=== PATIENT | male | born 1965 | race Caucasian/White ===

== ENCOUNTER → 2017-05-01 | Outpatient (CLI) | payer OTHER ==
[2017-05-01 13:04] LABS: ESTIMATED AVERAGE GLUCOSE 189 mg/dl; HA1C FLAG Normal (Normal)
[2017-05-01 13:36] LABS: BLOOD UREA NITROGEN 20 mg/dl (7-18); BUN/CREATININE RATIO 14.4 (10-20); CARBON DIOXIDE 26 mmol/L (21-32); CHLORIDE 108 mmol/L (98-107); GLUCOSE 147 mg/dl (70-99); POTASSIUM 4.3 mmol/L (3.5-5.1); SODIUM 140 mmol/L (136-145)
[2017-05-01 13:39] LABS: CHOLESTEROL 120 mg/dl (0-200); CHOLESTEROL/HDL RATIO 3.2; HDL CHOLESTEROL 37 mg/dl; LDL CHOLESTEROL CALCULATED 57 mg/dl; TRIGLYCERIDES 128 mg/dl (0-150); VERY LOW DENSITY LIPOPROT CALC 26 mg/dl
== END | disposition home or self-care (01) ==
LOC: C.LABPVFM 08:16
PROVIDERS: ATTEND Nurse Practitioner
DX: E11.9 Type 2 diabetes mellitus without complications (principal); I10 Essential (primary) hypertension; E78.2 Mixed hyperlipidemia

== ENCOUNTER → 2017-10-10 | Outpatient (CLI) | payer OTHER ==
[2017-10-10 18:14] LABS: BLOOD UREA NITROGEN 26 mg/dl (7-18); BUN/CREATININE RATIO 18.4 (10-20); CALCIUM 9.3 mg/dl (8.5-10.1); CARBON DIOXIDE 25 mmol/L (21-32); CHLORIDE 104 mmol/L (98-107); GLUCOSE 92 mg/dl (70-99); POTASSIUM 4.1 mmol/L (3.5-5.1); SODIUM 137 mmol/L (136-145); URIC ACID 7.6 mg/dl (2.6-7.2)
[2017-10-11 06:48] LABS: ESTIMATED AVERAGE GLUCOSE 157 mg/dl; HA1C FLAG Normal (Normal)
== END | disposition home or self-care (01) ==
LOC: C.LABPVFM 13:42
PROVIDERS: ATTEND Nurse Practitioner
DX: E11.9 Type 2 diabetes mellitus without complications (principal); E78.2 Mixed hyperlipidemia; M10.9 Gout, unspecified; Z11.59 Encounter for screening for other viral diseases

== ENCOUNTER 2021-12-21 10:16 | Inpatient (IN) ==
--- NOTE | 2021-12-21 11:02 | Emergency Department Note ---
Impression & Plan JYOTI (acute kidney injury), Right ureteral calculus, Bilateral renal stones ED Provider Note NAME: IVORY CADENA AGE: 56 SEX: M : 1965 ARRIVES VIA: Walk-In INFORMANT: Patient, ED PROVIDER(S): Krystian Willingham MD Chief Complaint: Flank pain, outpatient referral HPI: Patient does present due to concern for bilateral kidney stones right-sided hydroseen on ultrasound today and an outpatient referral. The patient had blood work completed as well. The patient's blood work shows JYOTI with a creatinine 2.7. Patient states that he developed some right-sided flank pain that would radiate to his right groin area beginning on Friday. Patient states that it is been intermittent in nature but when it occurs it is pretty uncomfortable. Patient has been trialing Tylenol, ibuprofen as well as oxycodone. This does occasionally improve his symptoms but today when he presented for his outpatient blood work and ultrasound he was not feeling unwell but as he was going home around 830 the patient noticed worsening discomfort did take an oxycodone and it did not seem to improve his pain within the next 20 to 30 minutes. Patient denies any nausea vomiting. Patient denies any chest pains or shortness of br eath. Patient denies any alcohol or tobacco use and is not vaccinated for COVID. Patient thinks that he might have passed a kidney stone in the remote past but is unsure. Patient denies any blood in the urine or stool. Patient states that has not had a bowel movement in 4 days but is passing gas. No prior history of obstruction but the patient has had an appendectomy. ROS: See HPI for pertinent positives and negatives. A total of 10 systems were reviewed and otherwise negative. Past medical history: See below Surgical history: See below Social history: See below Physical Exam: GENERAL: NAD, wearing a mask, non-toxic. EYE EXAM: Normal conjunctiva. PERRL, no anisocoria and EOM's grossly intact w/o pain. NECK: Supple, no nuchal rigidity, no adenopathy, non-tender. No signs of menin gismus. LUNGS: Clear to auscultation. Normal chest wall mechanics. HEART: NSR, no MRG. ABDOMEN: Abdomen soft, right-sided abdominal discomfort, negative obturators and psoas, normo-active bowel sounds, no masses, no rebound or guarding. BACK: No CVA TTP. SKIN: No rashes and no bruising. UPPER EXTREMITIES: Upper extremities are grossly normal. LOWER EXTREMITIES: Grossly normal, no edema. NEURO EXAM: A&O x3, cranial nerves II-XII grossly intact, normal speech, moves all 4 extremities on command w/o issue. Differential diagnoses: Appendicitis, testicular torsion, infections, diverticulitis, UTI, obstruction, mesenteric ischemia, aortic pathology, inflammatory bowel disease, renal colic, PUD, pancreatitis, biliary pathology, hernia, volvulus, constipation, as well as other pathologies. Course: Patient was seen and evaluated the bedside. Full history physical exam was performed. Imaging Studies: See Below Cardiac monitoring: An order was placed for continuous cardiac monitoring. The monitor shows a rate of 92 with sinus rhythm. MDM: Patient was seen due to concern for abnormal blood work as the patient has a baseline creatinine of 1.3 and today is 2.7. The patient was ordered IV fluids CBC LFTs and CT abdomen pelvis noncontrast as the patient has no prior known history of kidney stones. Patient has a normal white count with mild anemia 12.9. The patient's platelet count is unremarkable. The patient's LFTs are unremarkable. Patient was covered with a dose of Rocephin. Urine culture pending. I did speak with the on-call urologist Fartun Christina who did speak with Dr. Lopez and recommends medical admission. I spoke with Dr. Young and the patient was admitted to the medicine service. The patient was ordered additional pain medication for his renal colic. Past Med/Surg History Medical History Benign essential hypertension Diabetes mellitus Gout Mixed hyperlipidemia Surgical History History of appendectomy Family History Father Cardiac disorder Hypertension Myocardial infarction High cholesterol Grandfather (Maternal) Cardiac disorder Diabetes Hypertension Myocardial infarction Grandfather (Paternal) Cardiac disorder Diabetes Hypertension Myocardial infarction Aunt Depression Cancer Breast cancer Mother Diabetes Grandmother (Maternal) Diabetes Denies family history of Ovarian cancer Prostate cancer Colorectal cancer Social History Smoking Status: Never smoker Hx Alcohol Use: No Hx Substance Use: No Preferred Language: Urdu marital status: Current Living Situation: Spouse current occupational status: employed Feels Safe at Home: Yes Dental Care, Regularly: No Seatbelt Use: always Sunscreen Use: Yes Allergies Allergies Allergy/AdvReac Type Severity Reaction Status Date / Time No Known Allergies Allergy Verified 12/21/21 11:33 Home Meds Home Medications Medication Instructions Recorded Confirmed calcipotriene 0.005 % topical cream 1 appln TOPICAL .APPLY A THIN 05/02/19 12/21/21 LAYER T #1 gm allopurinol 100 mg tablet 100 mg PO HS 12/21/21 12/21/21 atorvastatin 40 mg tablet 40 mg PO HS 12/21/21 12/21/21 lisinopril 5 mg tablet 5 mg PO HS 12/21/21 12/21/21 sitagliptin 100 mg-metformin ER 1 tab PO QDD 12/21/21 12/21/21 1,000 mg tablet,extended [id number] (Janumet XR) tamsulosin 0.4 mg capsule (Flomax) 0.4 mg PO QAM 12/21/21 12/21/21 Previous Rx's Medication Instructions Recorded blood sugar diagnostic (OneTouch #100 ea 05/02/19 Ultra Blue Test Strip) Results & Data (ED) Vital Signs Vital Signs - 24 hr 12/21/21 10:17 12/21/21 10:37 12/21/21 11:41 Temperature 36.9 C Temperature Source Temporal Artery Scan Pulse Rate 98 H 66 Pulse Rate [Left Radial] 80 Pulse Rhythm Regular Pulse Rhythm [Left Radial] Regular Pulse Strength [Left Radial] Normal Respiratory Rate 20 18 14 Respiratory Effort / Characteristics Non-Labored Non-Labored Respiratory Depth Normal Normal Respiratory Pattern Regular Regular Blood Pressure 138/88 Blood Pressure [Left Arm] 140/87 Blood Pressure Mean 104 Blood Pressure Mean [Left Arm] 104 Blood Pressure Position [Left Arm] Lying Pulse Oximetry 98 94 98 Oxygen Delivery Method Room Air Room Air Room Air Sepsis Recent Fever Within 48 Hours No Sepsis New/Unexplained Change in Mental Status No Sepsis Action Taken by Nursing No Action Required 12/21/21 12:17 Temperature Temperature Source Pulse Rate Pulse Rate [Left Radial] 81 Pulse Rhythm Pulse Rhythm [Left Radial] Regular Pulse Strength [Left Radial] Normal Respiratory Rate 20 Respiratory Effort / Characteristics Non-Labored Respiratory Depth Normal Respiratory Pattern Regular Blood Pressure Blood Pressure [Left Arm] Blood Pressure Mean Blood Pressure Mean [Left Arm] Blood Pressure Position [Left Arm] Pulse Oximetry 98 Oxygen Delivery Method Room Air Sepsis Recent Fever Within 48 Hours Sepsis New/Unexplained Change in Mental Status Sepsis Action Taken by [facility] Medications Current Medication List: was personally reviewed by me Laboratory Data Attestation: I reviewed the patient's lab results. Result diagrams: 12/21/21 11:38 Lab Results 12/21/21 12/21/21 12/21/21 Range/Units 11:07 11:38 11:38 WBC 9.03 (4.8-10.8) K/uL RBC 3.83 L (4.7-6.1) M/uL Hgb 12.9 L (14.0-18.0) g/dL Hct 36.1 L (42-52) % MCV 94.3 (80-100) fL MCH 33.7 (25-34) pg MCHC 35.7 (32-36) g/dL RDW Std Deviation 43.8 (36.4-46.3) fL RDW Coeff of Jesse 12.7 (11.5-14.5) % Plt Count 216 (130-400) K/uL MPV 10.3 (7.4-10.4) fL Immature Gran % (Auto) 0.2 % Neut % (Auto) 83.6 % Lymph % (Auto) 12.8 % [place] % (Auto) 2.2 % Eos % (Auto) 1.1 % Baso % (Auto) 0.1 % Neut # (Auto) 7.54 H (1.4-6.5) K/uL Lymph # (Auto) 1.16 L (1.2-3.4) K/uL [place] # (Auto) 0.20 (0.11-0.59) K/uL Eos # (Auto) 0.10 (0-0.5) K/uL Baso # (Auto) 0.01 (0-0.2) K/uL Immature Gran # (Auto) 0.02 (0.00-0.02) K/uL Total Bilirubin 0.5 (0.2-1.0) mg/dl Direct Bilirubin 0.1 (0-0.2) mg/dl AST 11 L (13-39) U/L ALT 11 (7-52) U/L Alkaline Phosphatase 64 (34-104) U/L Total Creatine Kinase 62 (30-223) U/L Total Protein 7.4 (6.0-8.3) gm/dl Albumin 3.9 (3.4-5.0) gm/dl Urine Color Yellow Urine Appearance Cloudy A (Clear) Urine pH 5.5 (4.5-7.5) Ur Specific [place] 1.016 (1.000-1.030) Urine Protein 1+ H (Negative) Urine Glucose (UA) Negative (Negative) Urine Ketones 2+ H (Negative) Urine Blood 3+ H (Negative) Urine Nitrite Negative (Negative) Urine Bilirubin Negative (Negative) Urine Urobilinogen Negative (Negative) Ur Leukocyte Esterase Trace H (Negative) Urine WBC (Auto) 5-10 H (0-5) /hpf Urine RBC (Auto) 10-30 H (0-4) /hpf U Hyaline Cast (Auto) 5-10 H (0-5) /lpf U Epithel Cells (Auto) >30 H (0-5) /lpf Urine Bacteria (Auto) Negative (Negative) SARS-CoV-2, RNA, NAAT (NEGATIVE) 12/21/21 Range/Units 11:38 WBC (4.8-10.8) K/uL RBC (4.7-6.1) M/uL Hgb (14.0-18.0) g/dL Hct (42-52) % MCV (80-100) fL MCH (25-34) pg MCHC (32-36) g/dL RDW Std Deviation (36.4-46.3) fL RDW Coeff of Jesse (11.5-14.5) % Plt Count (130-400) K/uL MPV (7.4-10.4) fL Immature Gran % (Auto) % Neut % (Auto) % Lymph % (Auto) % [place] % (Auto) % Eos % (Auto) % Baso % (Auto) % Neut # (Auto) (1.4-6.5) K/uL Lymph # (Auto) (1.2-3.4) K/uL [place] # (Auto) (0.11-0.59) K/uL Eos # (Auto) (0-0.5) K/uL Baso # (Auto) (0-0.2) K/uL Immature Gran # (Auto) (0.00-0.02) K/uL Total Bilirubin (0.2-1.0) mg/dl Direct Bilirubin (0-0.2) mg/dl AST (13-39) U/L ALT (7-52) U/L Alkaline Phosphatase (34-104) U/L Total Creatine Kinase (30-223) U/L Total Protein (6.0-8.3) gm/dl Albumin (3.4-5.0) gm/dl Urine Color Urine Appearance (Clear) Urine pH (4.5-7.5) Ur Specific [place] (1.000-1.030) Urine Protein (Negative) Urine Glucose (UA) (Negative) Urine Ketones (Negative) Urine Blood (Negative) Urine Nitrite (Negative) Urine Bilirubin (Negative) Urine Urobilinogen (Negative) Ur Leukocyte Esterase (Negative) Urine WBC (Auto) (0-5) /hpf Urine RBC (Auto) (0-4) /hpf U Hyaline Cast (Auto) (0-5) /lpf U Epithel Cells (Auto) (0-5) /lpf Urine Bacteria (Auto) (Negative) SARS-CoV-2, RNA, NAAT NEGATIVE (NEGATIVE) Administered Medications Discontinued Medications Hydromorphone HCl (Hydromorphone Inj 0.5 Mg/0.5 Ml Syr) 0.5 mg IV NOW STA Stop: 12/21/21 12:56 Last Admin: 12/21/21 13:06 Dose: 0.5 mg Documented by: [id number] Hydromorphone HCl (Hydromorphone Inj 0.5 Mg/0.5 Ml Syr) 0.5 mg IV NOW STA Stop: 12/21/21 15:40 Last Admin: 12/21/21 15:48 Dose: 0.5 mg Documented by: [id number] Sodium Chloride (Nss 1000ml) 1,000 mls @ 999 mls/hr IV .Q1H1M RONALDO Stop: 12/21/21 12:30 Last Infusion: 12/21/21 12:37 Dose: 0 mls/hr Documented by: [id number] Admin: 12/21/21 11:34 Dose: 999 mls/hr Documented by: [id number] Ceftriaxone Sodium (Rocephin) 2,000 mg in 70 mls @ 140 mls/hr IV NOW STA Stop: 12/21/21 13:05 Last Infusion: 12/21/21 13:19 Dose: 0 mls/hr Documented by: [id number] Admin: 12/21/21 12:46 Dose: 140 mls/hr Documented by: [id number] Morphine Sulfate (Morphine Sulfate 4 Mg/Ml 1 Ml Carp\Vial) 4 mg IV NOW STA Stop: 12/21/21 11:25 Last Admin: 12/21/21 11:34 Dose: 4 mg Documented by: [id number] Ondansetron HCl (Ondansetron Inj 2 Mg/Ml 2 Ml Vial) 4 mg IV NOW STA Stop: 12/21/21 11:25 Last Admin: 12/21/21 11:34 Dose: 4 mg Documented by: [id number] Imaging Data Radiologist's Impression: Abdomen/Pelvis CT 12/21/21 11:24 CT SCAN OF THE ABDOMEN AND PELVIS WITHOUT IV CONTRAST CLINICAL HISTORY: Right flank pain and hematuria. COMPARISON STUDY: Renal ultrasound dated 12/21/2021. TECHNIQUE: CT scan of the abdomen and pelvis is performed from the lung bases to the proximal femora. Images are reviewed in the axial, sagittal, and coronal planes. IV contrast was not administered for this examination. A dose lowering technique was utilized adhering to the principles of ALARA. CT DOSE: 434.13 mGycm FINDINGS: Lung bases: The heart is normal in size and without pericardial effusion. There are punctate calcified granulomas at the left lung base. The lung bases are otherwise clear. There is a small hiatal hernia. Liver: The unenhanced liver is normal in size, contour, and attenuation. There is no intrahepatic biliary ductal dilatation. Gallbladder: Unremarkable. Spleen: Normal in size and attenuation. Pancreas: The unenhanced pancreas is mildly atrophic and grossly unremarkable. Adrenal glands: Unremarkable. Kidneys: The unenhanced kidneys are normal in size. There is a 7 mm obstructing calculus in the distal right ureter below the pelvic inlet seen on image #317. There are 2 additional more proximal right ureteral stones at the level of L4 seen on images #219 and #226 which measure up to 8 mm. These cause moderate right-sided hydroureteronephrosis. There is associated right-sided perinephric stranding and trace fluid. Numerous additional nonobstructing bilateral renal calculi measure up to 10 mm right (greater than 10 in each kidney). No left ureteral calculi are identified and there is no left-sided hydronephrosis. There is no evidence of contour deforming renal mass lesion. Abdominal vasculature: The abdominal aorta is normal in course and caliber. Bowel: There are scattered colonic diverticula without CT evidence of acute diverticulitis. No bowel obstruction is seen. Mild fecal retention is seen throughout the colon. The appendix is surgically absent. Peritoneum: No intraperitoneal free air is seen. There is trace free fluid in the pelvis. Lymphadenopathy: None. Pelvic viscera: The prostate gland is mildly enlarged and heterogeneous. The bladder is normal as visualized. Surgical clips are noted along the spermatic cord bilaterally. Skeletal structures: No lytic or blastic lesions are seen. IMPRESSION: 1. There are at least 3 obstructing calculi in the right ureter as detailed above measuring up to 8 mm. This causes moderate right hydroureteronephrosis. 2. There are numerous additional bilateral nonobstructing renal calculi as above. 3. There is no left ureteral stone. 4. Additional findings as above. ACT 112: Negative or not required by law. Electronically signed by: Wilder Chang M.D. 12/21/2021 12:30 PM Discharge Plan Visit Data Chief Complaint: Kidney Stone Stated Complaint: KIDNEY STONES, FLANK PAIN ED Provider: Krystian Willingham Discharge Problem: JYOTI (acute kidney injury), Right ureteral calculus, Bilateral renal stones Patient Disposition: Admitted As Inpatient Discharge Instructions Interventions: ED Discharge Assessment Last Done: 12/21/21 16:20
[2021-12-21] MEDS ORDERED: MoRPHine SULFATE 4 MG/ML 1 ML CARP\\VIAL IV STA (11:24)
[2021-12-21] MEDS ORDERED: ONDANSETRON INJ 2 MG/ML 2 ML VIAL IV STA (11:24)
[2021-12-21] MEDS ORDERED: SODIUM CHLORIDE 0.9% 1000ML 1,000 ML IV SCH (11:30)
[2021-12-21 11:31] LABS: Appearance Urine Cloudy (Clear); Bacteria Urine Automated Negative (Negative); Bilirubin Urine Negative (Negative); Blood Urine 3+ (Negative); Color Urine Yellow; Epithelial Cell Urine Auto >30 /lpf (0-5); Glucose Urine UA Negative (Negative); Ketones Urine 2+ (Negative); Leukocyte Esterase Urine Trace (Negative); Nitrite Urine Negative (Negative); Protein Urine 1+ (Negative); Specific Gravity Urine 1.016 (1.000-1.030); Urobilinogen Urine Negative (Negative); pH Urine 5.5 (4.5-7.5)
[2021-12-21 11:51] LABS: Basophils # (auto) 0.01 K/uL (0-0.2); Basophils % (auto) 0.1 %; Eosinophils % (auto) 1.1 %; Hematocrit (blood only) 36.1 % (42-52); Hemoglobin 12.9 g/dL (14.0-18.0); Immature Granulocytes # (auto) 0.02 K/uL (0.00-0.02); Immature Granulocytes % (auto) 0.2 %; Lymphocytes # (auto) 1.16 K/uL (1.2-3.4); Lymphocytes % (auto) 12.8 %; Mean Corpuscular Hemoglobin 33.7 pg (25-34); Mean Corpuscular Hgb Conc 35.7 g/dL (32-36); Mean Corpuscular Volume 94.3 fL (80-100); Mean Platelet Volume 10.3 fL (7.4-10.4); Monocytes % (auto) 2.2 %; Neutrophils # (auto) 7.54 K/uL (1.4-6.5); Neutrophils % (auto) 83.6 %; Platelet Count 216 K/uL (130-400); RDW Coefficient of Variation 12.7 % (11.5-14.5); RDW Standard Deviation 43.8 fL (36.4-46.3); Red Blood Count 3.83 M/uL (4.7-6.1); White Blood Count 9.03 K/uL (4.8-10.8)
[2021-12-21 12:26] LABS: Albumin Level 3.9 gm/dl (3.4-5.0); Bilirubin Direct 0.1 mg/dl (0-0.2); Bilirubin,Total 0.5 mg/dl (0.2-1.0); Total Protein 7.4 gm/dl (6.0-8.3)
--- NOTE | 2021-12-21 12:31 | CT Scan Report ---
CT SCAN OF THE ABDOMEN AND PELVIS WITHOUT IV CONTRAST CLINICAL HISTORY: Right flank pain and hematuria. COMPARISON STUDY: Renal ultrasound dated 12/21/2021. TECHNIQUE: CT scan of the abdomen and pelvis is performed from the lung bases to the proximal femora. Images are reviewed in the axial, sagittal, and coronal planes. IV contrast was not administered for this examination. A dose lowering technique was utilized adhering to the principles of ALARA. CT DOSE: 434.13 mGycm FINDINGS: Lung bases: The heart is normal in size and without pericardial effusion. There are punctate calcifie d granulomas at the left lung base. The lung bases are otherwise clear. There is a small hiatal herni a. Liver: The unenhanced liver is normal in size, contour, and attenuation. There is no intrahepatic julia iary ductal dilatation. Gallbladder: Unremarkable. Spleen: Normal in size and attenuation. Pancreas: The unenhanced pancreas is mildly atrophic and grossly unremarkable. Adrenal glands: Unremarkable. Kidneys: The unenhanced kidneys are normal in size. There is a 7 mm obstructing calculus in the dista l right ureter below the pelvic inlet seen on image #317. There are 2 additional more proximal right ureteral stones at the level of L4 seen on images #219 and #226 which measure up to 8 mm. These cause moderate right-sided hydroureteronephrosis. There is associated right-sided perinephric stranding an d trace fluid. Numerous additional nonobstructing bilateral renal calculi measure up to 10 mm right ( greater than 10 in each kidney). No left ureteral calculi are identified and there is no left-sided h ydronephrosis. There is no evidence of contour deforming renal mass lesion. Abdominal vasculature: The abdominal aorta is normal in course and caliber. Bowel: There are scattered colonic diverticula without CT evidence of acute diverticulitis. No bowel obstruction is seen. Mild fecal retention is seen throughout the colon. The appendix is surgically a bsent. Peritoneum: No intraperitoneal free air is seen. There is trace free fluid in the pelvis. Lymphadenopathy: None. Pelvic viscera: The prostate gland is mildly enlarged and heterogeneous. The bladder is normal as vis ualized. Surgical clips are noted along the spermatic cord bilaterally. Skeletal structures: No lytic or blastic lesions are seen. IMPRESSION: 1. There are at least 3 obstructing calculi in the right ureter as detailed above measuring up to 8 m m. This causes moderate right hydroureteronephrosis. 2. There are numerous additional bilateral nonobstructing renal calculi as above. 3. There is no left ureteral stone. 4. Additional findings as above. ACT 112: Negative or not required by law. Electronically signed by: Wilder Chang M.D. 12/21/2021 12:30 PM
[2021-12-21] MEDS ORDERED: cefTRIAXone SODIUM 2,000 MG/70 ML BAG IV STA (12:36)
[2021-12-21] MEDS ORDERED: HYDROmorphone INJ 0.5 MG/0.5 ML SYR IV STA ×2 (12:55→15:39)
--- NOTE | 2021-12-21 12:59 | Urology Consultation ---
Date of Consultation December 21, 2021 Assessment & Plan (1) Right ureteral calculus: 56yo M admitted with intractable right flank pain and JYOTI secondary to several obstructing right ureteral calculi. - Plan of care reviewed with Dr. Lopez, on-call urologist. - Pt afebrile, VSS, non-toxic appearing. - Labs reviewed - Creatinine elevated to 2.75, no leukocytosis. - Urinalysis on admit not overly concerning for infection, culture pending - treated with IV Ceftriaxone in ED, follow culture. - CTAP reviewed and notable for 3 obstructing right ureteral calculi with moderate hydro, numerous nonobstructing b/l renal stones. - Discussed options for stone management including surgical intervention with stent placement vs outpatient intervention if stable. - Given JYOTI, recommend admit for hydration and monitoring. - If creatinine improves and pain is controlled, then reasonable to schedule stone surgery as an outpatient. - If creatinine remains elevated or acute changes in clinical status, then emergent right ureteral stent placement recommended. - Patient agreeable with the plan, all questions answered. - Continue supportive care and management per primary service. - NPO at midnight to reassess tomorrow. - Please consult our service urgently if patient develops fever >101F, intractable pain or nausea, as this will necessitate urgent surgical intervention. Thank you for the consultation and we will continue to monitor closely with primary service. ATTENDING NOTE: Agree with above. Independently evaluated, assessed, and examined. Risks and benefits discussed at length for procedure. These include bleeding, infection, injury to surrounding tissues or organs, and risks associated with anesthesia. Patient states understanding and agrees to proceed. Will sign consent and proceed. Plan for Cystoscopy and right stent. History of Present Illness Reason for Consultation: right ureteral stones, JYOTI Requesting Physician: Dr. Willingham History of Present Illness 56 year-old male patient with a past medical history including DM, HTN, HLD who presented to the ED today as outpatient referral with concern for kidney stones and right sided hydronephrosis found on ultrasound imaging. On arrival, he reported right sided flank pain radiating to his right groin beginning on Friday. He completed outpatient labs and imaging and was found to have an obstructing stone with JYOTI (creatinine 2.75) and was referred to the ED for further evaluation. On presentation, he was afebrile, hemodynamically stable. No leukocytosis. Urinalysis notable for 3+ blood,trace leukocytes, 5-10WBC, 10-30RBC, negative bacteria, negative nitrite. He was given IVF and pain medication. Pt given dose of IV Ceftriaxone in ED. Patient was admitted to medicine for further management. A urine culture is pending. Covid test negative. Urology consulted for right ureteral stones, JYOTI. CT abdomen pelvis IMPRESSION: 1. There are at least 3 obstructing calculi in the right ureter as detailed above measuring up to 8 mm. This causes moderate right hydroureteronephrosis. 2. There are numerous additional bilateral nonobstructing renal calculi as above. 3. There is no left ureteral stone. Renal ultrasound IMPRESSION: 1. Mild right-sided hydronephrosis. Correlate with urinalysis to exclude an obstructing ureteral calculus. 2. Bilateral nephrolithiasis. 3. Decompressed urinary bladder. Patient seen and examined in ER. Patient awake, alert and resting in litter, no acute distress. He reports pain has improved since arrival. Pain continues to come intermittently and is located in right flank radiating to right abdomen and groin. Voiding spontaneously, notes stream is weaker intermittently since 4-5 days ago at onset of pain. No dysuria or hematuria. No nausea or vomiting. Notes low appetite since onset, last BM 4 days ago. No fever or chills. No chest pain or shortness of breath. No prior urology evaluations. He thinks he may have passed a stone a few years ago, but denies any prior surgical interventions for stones. No known family history of stones. No family hx of malignancy. He is on Allopurinol for gout. Offers no additional complaints today. Allergies Allergy/AdvReac Type Severity Reaction Status Date / Time No Known Allergies Allergy Verified 12/21/21 11:33 Home Medications Medication Instructions Recorded Confirmed Type blood sugar diagnostic (OneTouch #100 ea 05/02/19 12/20/21 Rx Ultra Blue Test Strip) calcipotriene 0.005 % topical cream 1 appln TOPICAL .APPLY A THIN 05/02/19 12/21/21 History LAYER T #1 gm allopurinol 100 mg tablet 100 mg PO HS 12/21/21 12/21/21 History atorvastatin 40 mg tablet 40 mg PO HS 12/21/21 12/21/21 History lisinopril 5 mg tablet 5 mg PO HS 12/21/21 12/21/21 History sitagliptin 100 mg-metformin ER 1 tab PO QDD 12/21/21 12/21/21 History 1,000 mg tablet,extended [id number] mp (Janumet XR) tamsulosin 0.4 mg capsule (Flomax) 0.4 mg PO QAM 12/21/21 12/21/21 History Patient History Medical History Benign essential hypertension Diabetes mellitus Gout Mixed hyperlipidemia Surgical History History of appendectomy Family History Father Cardiac disorder Hypertension Myocardial infarction High cholesterol Grandfather (Maternal) Cardiac disorder Diabetes Hypertension Myocardial infarction Grandfather (Paternal) Cardiac disorder Diabetes Hypertension Myocardial infarction Aunt Depression Cancer Breast cancer Mother Diabetes Grandmother (Maternal) Diabetes Denies family history of Ovarian cancer Prostate cancer Colorectal cancer Social History Smoking Status: Never smoker Hx Alcohol Use: No Hx Substance Use: No Preferred Language: Vietnamese Fireperson Required: No Beliefs That Will Affect Care: None marital status: Current Living Situation: Family current occupational status: employed Feels Safe at Home: Yes Dental Care, Regularly: No Seatbelt Use: always Sunscreen Use: Yes Review of Systems Constitutional: as per Subjective / HPI Eyes: no problem reported Ear, Nose, Mouth, Throat: no problem reported Respiratory: no dyspnea Cardiovascular: no chest pain Gastrointestinal: as per Subjective / HPI Genitourinary: + as per Subjective / HPI Musculoskeletal: no problem reported Integumentary: no problem reported Neurologic: no problem reported Psychiatric: no problem reported Endocrine: no problem reported Physical Exam Constitutional: well developed and well nourished; no acute distress and not ill appearing Eyes: no scleral abnormality Neck: normal visual inspection Respiratory: normal respiratory effort and able to speak in complete sentences; no respiratory distress and no labored breathing Cardiovascular: Extremities: no pedal edema Gastrointestinal (Abdomen): Inspection/Auscultation: abdomen normal to inspection; abdomen not distended Percussion/Palpation: abdomen soft; abdomen nontender and no guarding Neurologic: moves all extremities and awake Psychiatric: Orientation: alert, oriented x 3 and cooperative Genitourinary: no CVA tenderness Results & Data ([facility]) Vital Signs (Past 12 Hours) Vital Signs Temp Pulse Resp BP Pulse Ox 12/21/21 11:41 66 14 98 12/21/21 10:37 36.9 C 98 H 18 138/88 94 PG Care Time/CCT Total # of Minutes Spent Total Time Spent with Patient: Total time spent is greater than 50% in coordination of care (as documented) at patient's floor/unit and/or counseling patient: Coding Level of Care Code 48365 Inpt Consult Level 4 Diagnoses Right ureteral calculus N20.1
--- NOTE | 2021-12-21 13:49 | History & Physical Report ---
Date of Service December 21, 2021 Assessment & Plan (1) Bilateral renal stones: Plan: Multiple bilateral renal stones- right obstructing associated with right sided hydronephrosis. 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 Patient comes to the hospital today after visit with PCP on [id number] for complaints of back pain, decreased urine stream, and pelvic pain. The patient was started on Flomax as outpatient and had BMP, UA, and renal ultrasound performed as outpatient. 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 He had a CT scan performed following his renal ultrasound. Urology was consulted by the [facility] and Hospitalist service was consulted for admission. The patient has multiple bilateral renal stones with right side obstruction and moderate right sided hydronephrosis. His UA is likely consistent with contaminant- will hold on further Rocephin. Patient denies any fevers or chills, but has noted increase in right sided flank and back pain with radiation to the testicles. The pain comes in waves and is rated 7-8/10 when it is on-going. He has been trying to medicate at home with Advil, Tylenol, and Oxycodone with severe pain, he does endorse decrease in appetite and fluid intake. Also endorses some hematuria and decrease in his urine stream. He has not followed up with urology in the past and is unsure of family history of prostate cancer or history of enlargement. Patient will be admitted to the medical floor, diet as tolerated, LR for hydration, dilaudid and tylenol for pain control, transition to sliding scale insulin for BG >180. NPO after midnight. Patient has not had his COVID vaccines and his COVID test on admission is: NEGATIVE Allergies Allergy/AdvReac Type Severity Reaction Status Date / Time No Known Allergies Allergy Verified 12/21/21 11:33 Home Medications Medication Instructions Recorded Confirmed Type blood sugar diagnostic (OneTouch #100 ea 05/02/19 12/20/21 Rx Ultra Blue Test Strip) calcipotriene 0.005 % topical cream 1 appln TOPICAL .APPLY A THIN 05/02/19 12/21/21 History LAYER T #1 gm allopurinol 100 mg tablet 100 mg PO HS 12/21/21 12/21/21 History atorvastatin 40 mg tablet 40 mg PO HS 12/21/21 12/21/21 History lisinopril 5 mg tablet 5 mg PO HS 12/21/21 12/21/21 History sitagliptin 100 mg-metformin ER 1 tab PO QDD 12/21/21 12/21/21 History 1,000 mg tablet,extended [id number] mp (Janumet XR) tamsulosin 0.4 mg capsule (Flomax) 0.4 mg PO QAM 12/21/21 12/21/21 History Past Med/Surg History Medical History (Updated 12/21/21 @ 14:05 by Rebecca Young MD) Benign essential hypertension Diabetes mellitus Gout Mixed hyperlipidemia Surgical History History of appendectomy Family History Father Cardiac disorder Hypertension Myocardial infarction High cholesterol Grandfather (Maternal) Cardiac disorder Diabetes Hypertension Myocardial infarction Grandfather (Paternal) Cardiac disorder Diabetes Hypertension Myocardial infarction Aunt Depression Cancer Breast cancer Mother Diabetes Grandmother (Maternal) Diabetes Denies family history of Ovarian cancer Prostate cancer Colorectal cancer Social History Smoking Status: Never smoker Hx Alcohol Use: No Hx Substance Use: No Preferred Language: [place] marital status: Current Living Situation: Spouse current occupational status: employed Feels Safe at Home: Yes Dental Care, Regularly: No Seatbelt Use: always Sunscreen Use: Yes Review of Systems Review of Systems: REVIEW OF SYSTEMS: Constitutional: No fever, sweats or chills Eyes: No diplopia, no worsening or blurred vision ENT: normal hearing, no trouble swallowing Respiratory: No cough, sputum, dyspnea at rest or on exertion Cardiovascular: No chest pain, tightness or palpitations Abdomen: (+) pain, nausea, vomiting, constipation Musculoskeletal: (+) flank pain, calf pain, swelling Neurologic: No weakness, numbness/tingling, or balance problems Psychiatric: No anxiety or depression Skin: No rash or itch Physical Exam Physical Exam: PHYSICAL EXAM: General: awake, alert, no apparent distress Head: Normocephalic, atraumatic ENT: PERRL, EOMI, no pharyngeal exudate, mucous membranes moist Neuro: AAO x 3, speech clear and appropriate, strength intact bilaterally 5/5, sensation intact and equal all extremities and dermatomes, no pronator drift Chest: equal rise and fall of the chest, no accessory muscle use, no heaves or thrills, Clear to auscultation, on room air, Cardiac: Regular rate and rhythm, telemetry reviewed, skin warm dry, cap refill <3 seconds, peripheral pulses +2 no JVD, no murmur, no edema GI: NABS x 4 quadrants, softly distended, tympanic on percussion, nontender to palpation, no rebound, guarding or tenderness : Spontaneously voiding, no pain, no CVA tenderness, Extremities: Normal inspection, no peripheral edema or erythema, calfs nontender to palpation Psych: Normal mood and affect Skin: no rash or erythema Results & Data Results & Data ([facility]) Vital Signs (Past 12 Hours) Vital Signs Temp Pulse Pulse Resp BP BP Pulse Ox 12/21/21 12:17 81 20 98 12/21/21 11:41 66 14 98 12/21/21 10:37 36.9 C 98 H 18 138/88 94 12/21/21 10:17 80 20 140/87 98 Laboratory Results Abnormal Labs 12/21/21 12/21/21 12/21/21 11:07 11:38 11:38 RBC 3.83 L Hgb 12.9 L Hct 36.1 L Neut # (Auto) 7.54 H Lymph # (Auto) 1.16 L AST 11 L Urine Appearance Cloudy A Urine Protein 1+ H Urine Ketones 2+ H Urine Blood 3+ H Ur Leukocyte Esterase Trace H Urine WBC (Auto) 5-10 H Urine RBC (Auto) 10-30 H U Hyaline Cast (Auto) 5-10 H U Epithel Cells (Auto) >30 H Diagnostic Findings Abdomen/Pelvis CT 12/21/21 11:24 CT SCAN OF THE ABDOMEN AND PELVIS WITHOUT IV CONTRAST CLINICAL HISTORY: Right flank pain and hematuria. COMPARISON STUDY: Renal ultrasound dated 12/21/2021. TECHNIQUE: CT scan of the abdomen and pelvis is performed from the lung bases to the proximal femora. Images are reviewed in the axial, sagittal, and coronal planes. IV contrast was not administered for this examination. A dose lowering technique was utilized adhering to the principles of ALARA. CT DOSE: 434.13 mGycm FINDINGS: Lung bases: The heart is normal in size and without pericardial effusion. There are punctate calcified granulomas at the left lung base. The lung bases are otherwise clear. There is a small hiatal hernia. Liver: The unenhanced liver is normal in size, contour, and attenuation. There is no intrahepatic biliary ductal dilatation. Gallbladder: Unremarkable. Spleen: Normal in size and attenuation. Pancreas: The unenhanced pancreas is mildly atrophic and grossly unremarkable. Adrenal glands: Unremarkable. Kidneys: The unenhanced kidneys are normal in size. There is a 7 mm obstructing calculus in the distal right ureter below the pelvic inlet seen on image #317. There are 2 additional more proximal right ureteral stones at the level of L4 seen on images #219 and #226 which measure up to 8 mm. These cause moderate right-sided hydroureteronephrosis. There is associated right-sided perinephric stranding and trace fluid. Numerous additional nonobstructing bilateral renal calculi measure up to 10 mm right (greater than 10 in each kidney). No left ur eteral calculi are identified and there is no left-sided hydronephrosis. There is no evidence of contour deforming renal mass lesion. Abdominal vasculature: The abdominal aorta is normal in course and caliber. Bowel: There are scattered colonic diverticula without CT evidence of acute diverticulitis. No bowel obstruction is seen. Mild fecal retention is seen throughout the colon. The appendix is surgically absent. Peritoneum: No intraperitoneal free air is seen. There is trace free fluid in the pelvis. Lymphadenopathy: None. Pelvic viscera: The prostate gland is mildly enlarged and heterogeneous. The bladder is normal as visualized. Surgical clips are noted along the spermatic cord bilaterally. Skeletal structures: No lytic or blastic lesions are seen. IMPRESSION: 1. There are at least 3 obstructing calculi in the right ureter as detailed above measuring up to 8 mm. This causes moderate right hydroureteronephrosis. 2. There are numerous additional bilateral nonobstructing renal calculi as above. 3. There is no left ureteral stone. 4. Additional findings as above. ACT 112: Negative or not required by law. Electronically signed by: Wilder Chang M.D. 12/21/2021 12:30 PM Medications Administered Discontinued Medications Hydromorphone HCl (Hydromorphone Inj 0.5 Mg/0.5 Ml Syr) 0.5 mg IV NOW STA Stop: 12/21/21 12:56 Last Admin: 12/21/21 13:06 Dose: 0.5 mg Documented by: [id number] Sodium Chloride (Nss 1000ml) 1,000 mls @ 999 mls/hr IV .Q1H1M RONALDO Stop: 12/21/21 12:30 Last Infusion: 12/21/21 12:37 Dose: 0 mls/hr Documented by: [id number] Admin: 12/21/21 11:34 Dose: 999 mls/hr Documented by: [id number] Ceftriaxone Sodium (Rocephin) 2,000 mg in 70 mls @ 140 mls/hr IV NOW STA Stop: 12/21/21 13:05 Last Infusion: 12/21/21 13:19 Dose: 0 mls/hr Documented by: [id number] Admin: 12/21/21 12:46 Dose: 140 mls/hr Documented by: [id number] Morphine Sulfate (Morphine Sulfate 4 Mg/Ml 1 Ml Carp\Vial) 4 mg IV NOW STA Stop: 12/21/21 11:25 Last Admin: 12/21/21 11:34 Dose: 4 mg Documented by: [id number] Ondansetron HCl (Ondansetron Inj 2 Mg/Ml 2 Ml Vial) 4 mg IV NOW STA Stop: 12/21/21 11:25 Last Admin: 12/21/21 11:34 Dose: 4 mg Documented by: [id number] ECG Additional Comments: pending on admission Code Status & VTE Plan Code Status CODE: FULL VTE: SCDS, ambulation VTE Prophylaxis Plan VTE Prophylaxis will be ordered: Yes Supervising Physician Co-Signing Physician Notes FUEL AGENT Supervision note: I have personally seen and examined the patient and discussed and verified the gomez points of the history and physical along with the plan with TRACI Ballard with the following exceptions and/or additions: This patient is a 56-year-old male with history of HTN, DM 2, gout, who presents with right flank pain, low appetite. Denies fevers or chills, nausea/vomiting. He has not moved his bowels in 5 days. Found to have right ureterolithiasis with right moderate hydronephrosis and acute kidney injury in the ER. UA negative for infection but more consistent with microscopic hematuria and contamination with epithelial cells. History and ROS reviewed as above Vitals reviewed Gen: AAOx3, NAD HEENT: Anicteric sclerae, EOMI CV: RRR no mgr nl S1S2 Pulm: CTAB no wcr Abd: +BS soft NT ND no masses or hernias Ext: No edema, 2+ DP pulses Skin: No rashes, warm/dry Neuro: Full strength throughout Labs and rads reviewed ECG pending 56-year-old male here with acute kidney injury, obstructing right uretero lithiasis with hydronephrosis Admit for IV fluid hydration, urology management with stent placement likely tomorrow -Pain control, bowel regimen Hold lisinopril and Janumet Follow chemistry in the morning PG Care Time/CCT Total # of Minutes Spent Total Time Spent with Patient: Total time spent is greater than 50% in coordination of care (as documented) at patient's floor/unit and/or counseling patient: Coding Level of Care Code 71505 Initial Inpt Care Lvl 3 Diagnoses Difficulty urinating R39.198 Benign essential hypertension I10 Diabetes mellitus E11.9 Mixed hyperlipidemia E78.2 Bilateral renal stones N20.0 JYOTI (acute kidney injury) N17.9
--- NOTE | 2021-12-21 14:39 | Electrocardiogram Report ---
Test Reason : Blood Pressure : / mmHG Vent. Rate : 076 BPM Atrial Rate : 076 BPM P-R Int : 192 ms QRS Dur : 090 ms QT Int : 360 ms P-R-T Axes : 058 050 028 degrees QTc Int : 405 ms Normal sinus rhythm Normal ECG No previous ECGs available Confirmed by George Rebolledo ([id number]) on 12/21/2021 2:39:37 PM Referred By: REFERRED SELF Confirmed By:Roman Rebolledo
[2021-12-21] MEDS ORDERED: POLYETHYLENE (MIRALAX) 17 GM PACK PO PRN (16:41)
[2021-12-21] MEDS ORDERED: DEXTROSE 50% 50 ML SYRINGE IV PRN (16:41)
[2021-12-21] MEDS ORDERED: CARBOHYDRATES FOR HYPOGLYCEMIA PO PRN (16:41)
[2021-12-21] MEDS ORDERED: GLUCAGON FOR INJ 1 MG VIAL SQ PRN (16:41)
[2021-12-21] MEDS ORDERED: DOCUSATE SODIUM/SENNA 50/8.6MG TAB PO PRN (16:41)
[2021-12-21] MEDS ORDERED: GLUCOSE 40% GEL 15 GM TUBE PO PRN (16:41)
[2021-12-21] MEDS ORDERED: ACETAMINOPHEN 325 MG TAB PO PRN (16:41)
[2021-12-21] MEDS: LACTATED RINGER'S 1,000 ML IV SCH (16:41)
[2021-12-21] MEDS ORDERED: GLUCOSE 10 TABS/TUBE PO PRN (16:41)
[2021-12-21] MEDS: HYDROmorphone INJ 0.5 MG/0.5 ML SYR IV PRN ×2 (17:48→21:35)
[2021-12-21] MEDS: INSULIN ASPART PER UNIT SC SCH ×2 (17:49→21:33)
[2021-12-21] MEDS: ONDANSETRON INJ 2 MG/ML 2 ML VIAL IV PRN (19:36)
[2021-12-21] MEDS: allopurinoL 100 MG TAB PO SCH (21:34)
[2021-12-21] MEDS: ATORVASTATIN 40 MG TAB PO SCH (21:34)
[2021-12-22] MEDS: LACTATED RINGER'S 1,000 ML IV SCH ×3 (00:40→18:24)
[2021-12-22] MEDS: HYDROmorphone INJ 0.5 MG/0.5 ML SYR IV PRN ×3 (00:40→08:08)
[2021-12-22] MEDS ORDERED: Nursing to Pharmacy Communication SCH ×2 (03:15→15:15)
[2021-12-22] MEDS: INSULIN ASPART PER UNIT SC SCH ×4 (06:21→21:59)
[2021-12-22] MEDS: ONDANSETRON INJ 2 MG/ML 2 ML VIAL IV PRN (06:26)
[2021-12-22] MEDS: TAMSULOSIN HCL 0.4 MG CAP PO SCH (08:10)
[2021-12-22] MEDS ORDERED: KETOROLAC TROMETHAMINE 15 MG/ML VIAL IV ONE (10:44)
[2021-12-22] MEDS ORDERED: HYDROmorphone INJ 0.5 MG/0.5 ML SYR IV PRN (10:45)
--- NOTE | 2021-12-22 11:04 | Hospitalist Progress Note ---
Date of Service December 22, 2021 Assessment & Plan (1) Right ureteral calculus: Plan: 56yo Male with PMH gout, HTN, HLD, DM2 here for b/l ureterolithiasis with right obstruction (1) Bilateral renal stones: Plan: Multiple bilateral renal stones- right obstructing associated with right sided hydronephrosis. -CT abd: There is a 7 mm obstructing calculus in the distal right ureter below the pelvic inlet seen on image #317. There are 2 additional more proximal right ureteral stones at the level of L4 seen on images #219 and #226 which measure up to 8 mm. These cause moderate right-sided hydroureteronephrosis. There is asso ciated right-sided perinephric stranding and trace fluid. Numerous additional nonobstructing bilateral renal calculi measure up to 10 mm right (greater than 10 in each kidney). No left ureteral calculi are identified and there is no left-sided hydronephrosis. There is no evidence of contour deforming renal mass lesion. - LR 125 ml/hr - npo --> diet resumed post stent placement - Pain control with Tylenol and Dilaudid, increased dilaudid to 1mg q4 and added toradol -added flomax - Urology consulted, stent placed 12/22 with great improvement to pain per patient recommend patient d/c if creatinine downtrending 3-5 days ciprofloxacin pyridium and flomax for stent discomfort drink lots of fluids - Strain urine (2) Difficulty urinating: Plan: As above - likely obstructive from renal stones and enlarged prostate -post stent placement, patient has not urinated yet, will continue to monitor (3) JYOTI (acute kidney injury): Plan: DEDRICK III- multifactorial to renal stone, Advil useage, hypovolemia - Hold ROQUE - Follow HCo3- should improve with hydration and stone removal - Daily BMP, Creat downtrended 2.34 to 2.12 post stent placement - GAP acidosis likely related to increase in BUN/[facility] [employer] (4) Benign essential hypertension: Plan: Hold ROQUE at this time - follow- Notify if >180 and can add on PRN (5) Diabetes mellitus: Plan: Hold his Janumet - HGB A1c 7.6 - Convert to aspart sliding scale (6) Mixed hyperlipidemia: Plan: Continue statin (2) Diabetes mellitus: (3) Mixed hyperlipidemia: (4) JYOTI (acute kidney injury): (5) Bilateral renal stones: (6) Gout: Admission and Anticipated Discharge Date Admission Date: December 21, 2021 Supervising Physician Co-Signing Physician Notes Patient seen and examined with PGY-1 Dr. Fine. Agree with history, exam findings. assessment and plan of care as outlined. In brief, Mr. Busch is a 56 year old male with history of HTN, HLD, DM and gout admitted with obstructing renal stones. Seen prior to surgical intervention. He is in quite a bit of pain due to stones. No nausea, vomiting. VS and nursing notes reviewed. Very uncomfortable. Unable to move due to pain. Labs and imaging reviewed. 1. bilateral renal stones; right obstructing stone with hydronephrosis. flomax, s/p stent today with urology. Appreciate urology recommendations. 2. JYOTI--post-renal. Holding ROQUE for now. 3. HTN. Holding ROQUE inhibitor. But will restart tomorrow if renal function continues to improve. 4. DM. basal-bolus insulin. 5. gout. continue allopurinol. Dispo: expect that he can be discharged home tomorrow if Cr continues to improve and post-intervention pain is well controlled. Subjective 56yo Male seen at bedside, laying down in pain, states his current regime was not adequately managing his pain. States he started having pain starting friday that gradually got worse, came to hospital night. He states he has not had an appetite all week, has not eaten all week. He has been able to urinate. Patient states he has had one kidney stone many years ago, states it did not feel like this. Patient looks forward to urology procedure, hopes it will reduce his pain. Later in day patient taken for urologic stent procedure, stent placed without complication. Per nursing patient appetite has returned, requests diet. Patient states he is no longer in pain. has convinced him to stay overnight in the hospital to monitor pain and kidney function. Review of Systems Review of Systems: Positive abd pain, nausea Negative fever chills Negative headache dizziness Negative chest pain palpitations SOB Negative vomitting diarrhea constipation Negative numbness tingling rash swelling Physical Exam Constitutional: WD/WN, vitals as above + acute distress and cooperative Eyes: PERRL, conjunctivae normal, anicteric sclerae ENMT: external ear and nose normal, oropharynx normal Neck: trachea midline, no thyromegaly Respiratory: normal respiratory effort, lungs clear to auscultation Cardiovascular: RRR, no murmur, no edema Chest (Breasts): Chest: normal inspection of chest Gastrointestinal (Abdomen): Inspection/Auscultation: abdomen normal to inspection and normal bowel sounds Percussion/Palpation: + abdomen tender Skin: no rashes, warm and dry Results & Data Results & Data ([facility]) Vital Signs (Past 12 Hours) Vital Signs Temp Pulse Resp BP Pulse Ox 12/22/21 08:00 36.9 C 77 18 132/83 93 Resident Activity Tracking Resident Involvement: Resident Care Provided Care Provided: Adult Hospital Medicine
[2021-12-22 11:18] LABS: Basophils # (auto) 0.01 K/uL (0-0.2); Basophils % (auto) 0.1 %; Eosinophils # (auto) 0.09 K/uL (0-0.5); Eosinophils % (auto) 1.2 %; Hematocrit (blood only) 33.7 % (42-52); Hemoglobin 11.8 g/dL (14.0-18.0); Immature Granulocytes # (auto) 0.01 K/uL (0.00-0.02); Immature Granulocytes % (auto) 0.1 %; Lymphocytes # (auto) 0.34 K/uL (1.2-3.4); Lymphocytes % (auto) 4.6 %; Mean Corpuscular Volume 94.1 fL (80-100); Mean Platelet Volume 10.9 fL (7.4-10.4); Monocytes # (auto) 0.83 K/uL (0.11-0.59); Monocytes % (auto) 11.3 %; Neutrophils # (auto) 6.04 K/uL (1.4-6.5); Neutrophils % (auto) 82.7 %; Platelet Count 211 K/uL (130-400); RDW Coefficient of Variation 12.5 % (11.5-14.5); RDW Standard Deviation 42.8 fL (36.4-46.3); Red Blood Count 3.58 M/uL (4.7-6.1); White Blood Count 7.32 K/uL (4.8-10.8)
[2021-12-22 11:29] LABS: BUN Creatinine Ratio 12.8 (10-20); Calcium 8.8 mg/dl (8.5-10.1); Creatinine Clr Calc Pharmacy 30.7 ml/min; Est GFR (African American) 34.7 ml/min; Potassium 4.2 mmol/L (3.5-5.1)
--- NOTE | 2021-12-22 12:17 | Anesthesiology Consultation ---
Date of Service December 22, 2021 Assessment & Plan (1) Encounter for pre-operative examination: Chart Review Chart Review: Acceptable Risk for Surgery and Patient NOT seen in Pre Admission Testing Consults Requested none History Surgery Operation Date: 12/22/21 10:30 Proposed Procedures p Cystoscopy, Ureteral Stent Insertion/Removal - Gregory Lopez, Height/Weight Height: 5 ft 5 in Weight: 72.1 kg Allergies Allergy/AdvReac Type Severity Reaction Status Date / Time No Known Allergies Allergy Verified 12/21/21 11:33 Medications Home Medications Medication Instructions Recorded Confirmed Last Taken blood sugar diagnostic (OneTouch #100 ea 05/02/19 12/20/21 Unknown Ultra Blue Test Strip) calcipotriene 0.005 % topical cream 1 appln TOPICAL .APPLY A THIN 05/02/19 12/21/21 Unknown LAYER T #1 gm allopurinol 100 mg tablet 100 mg PO HS 12/21/21 12/21/21 12/19/21 atorvastatin 40 mg tablet 40 mg PO HS 12/21/21 12/21/21 12/19/21 lisinopril 5 mg tablet 5 mg PO HS 12/21/21 12/21/21 12/19/21 sitagliptin 100 mg-metformin ER 1 tab PO QDD 12/21/21 12/21/21 12/19/21 1,000 mg tablet,extended [id number] (Janumet XR) tamsulosin 0.4 mg capsule (Flomax) 0.4 mg PO QAM 12/21/21 12/21/21 12/21/21 Active Medications Generic Name Dose Route Start Last Admin Trade Name Freq PRN Reason Stop Dose Admin Acetaminophen 650 mg 12/21/21 16:41 12/21/21 19:35 Acetaminophen 325 Mg Tab PO 01/20/22 16:40 650 mg Q4H PRN Administration pain/fever Allopurinol 100 mg 12/21/21 21:00 12/21/21 21:34 Allopurinol 100 Mg Tab PO 01/20/22 20:59 100 mg HS RONALDO Administration Atorvastatin Calcium 40 mg 12/21/21 21:00 12/21/21 21:34 Atorvastatin 40 Mg Tab PO 01/20/22 20:59 40 mg HS RONALDO Administration Hydromorphone HCl 1 mg 12/22/21 10:45 12/22/21 12:01 Hydromorphone Inj 0.5 Mg/0.5 Ml Syr IV 01/04/22 16:40 1 mg Q4 PRN Administration Pain Lactated Ringer's 1,000 mls @ 125 mls/hr 12/21/21 16:41 12/22/21 12:05 Lr IV 01/20/22 16:40 0 mls/hr .Q8H RONALDO Infusion Insulin Aspart 0 units 12/22/21 06:00 12/22/21 12:08 Insulin Aspart Per Unit SC 01/21/22 05:59 Not Given Q6 RONALDO Miscellaneous 1 ea 12/22/21 00:00 12/22/21 07:23 Calcipotriene 0.005 % Cream: Order Awaiting Action N/A 01/21/22 00:00 Not Given QS RONALDO Ondansetron HCl 4 mg 12/21/21 16:41 12/22/21 06:26 Ondansetron Inj 2 Mg/Ml 2 Ml Vial IV 01/20/22 16:40 4 mg Q6H PRN Administration Nausea Tamsulosin HCl 0.4 mg 12/22/21 09:00 12/22/21 08:10 Tamsulosin Hcl 0.4 Mg Cap PO 01/21/22 08:59 0.4 mg QAM RONALDO Administration Past Medical History Medical History Benign essential hypertension Diabetes mellitus Gout Mixed hyperlipidemia Past Family History Family History Father Cardiac disorder Hypertension Myocardial infarction High cholesterol Grandfather (Maternal) Cardiac disorder Diabetes Hypertension Myocardial infarction Grandfather (Paternal) Cardiac disorder Diabetes Hypertension Myocardial infarction Aunt Depression Cancer Breast cancer Mother Diabetes Grandmother (Maternal) Diabetes Denies family history of Ovarian cancer Prostate cancer Colorectal cancer Past Surgical History Surgical History History of appendectomy Social History Smoking Status: Never smoker Hx Alcohol Use: No Hx Substance Use: No Physical Exam Vital Signs Last Vital Signs Temp 36.9 C 12/22/21 08:00 Pulse 77 12/22/21 08:00 Resp 18 12/22/21 08:00 BP 132/83 12/22/21 08:00 Pulse Ox 93 12/22/21 08:00 Testing Laboratory Results 12/22/21 10:17 12/22/21 10:17 Urine Color Yellow 12/21/21 11:07 Urine Appearance Cloudy (Clear) A 12/21/21 11:07 Urine pH 5.5 (4.5-7.5) 12/21/21 11:07 Ur Specific [place] 1.016 (1.000-1.030) 12/21/21 11:07 Urine Protein 1+ (Negative) H 12/21/21 11:07 Urine Glucose (UA) Negative (Negative) 12/21/21 11:07 Urine Ketones 2+ (Negative) H 12/21/21 11:07 Urine Nitrite Negative (Negative) 12/21/21 11:07 Ur Leukocyte Esterase Trace (Negative) H 12/21/21 11:07 Urine WBC (Auto) 5-10 /hpf (0-5) H 12/21/21 11:07 Urine RBC (Auto) 10-30 /hpf (0-4) H 12/21/21 11:07 U Hyaline Cast (Auto) 5-10 /lpf (0-5) H 12/21/21 11:07 U Epithel Cells (Auto) >30 /lpf (0-5) H 12/21/21 11:07 Urine Bacteria (Auto) Negative (Negative) 12/21/21 11:07 12/22/21 12/22/21 12:02 05:58 POC Glucose 121 H 146 H
--- NOTE | 2021-12-22 12:36 | History & Physical Bridge Note ---
Date of Service December 22, 2021 History & Physical Bridge Note I have examined the patient, reviewed the History & Physical and in the interval since the performance of the History & Physical I have noted the following changes of clinical significance: no changes noted
[2021-12-22] MEDS ORDERED: MIDAZOLAM HCL 1 MG/ML 2ML VIAL ONE (12:42)
[2021-12-22] MEDS ORDERED: fentaNYL citrate 100 MCG/2 ML VIAL ONE (12:42)
[2021-12-22] MEDS ORDERED: PROPOFOL IV EMULSION 10 MG/ML 20 ML VIAL IV ONE (12:42)
[2021-12-22] MEDS ORDERED: LIDOCAINE 2% 2 ML VIAL/AMP(20MG/ML) INFIL ONE (12:42)
[2021-12-22] MEDS ORDERED: FAMOTIDINE 20 MG in SYRINGE 3 ML IV PRN (13:05)
[2021-12-22] MEDS ORDERED: ATROPINE SULFATE 0.1 MG/ML 10ML SYR IV PRN (13:18)
[2021-12-22] MEDS ORDERED: ONDANSETRON INJ 2 MG/ML 2 ML VIAL IV PRN (13:18)
[2021-12-22] MEDS ORDERED: fentaNYL citrate 100 MCG/2 ML VIAL IV PRN (13:18)
[2021-12-22] MEDS ORDERED: ePHEDrine sulfate 50 MG/ML AMP IV PRN (13:18)
[2021-12-22] MEDS ORDERED: ceFAZolin 2000MG 2,000 MG/15 ML SYR IV ONE (13:20)
--- NOTE | 2021-12-22 13:26 | Operative Report ---
[facility] Post Operative Report Pre & Post Diagnosis Operation Date: 12/22/21 10:30 Pre-Op Diagnosis: Right Ureteral Stones Post-Op Diagnosis: Right Ureteral Stones I identified the patient and participated in the time-out.: Yes Procedure Operation Date: 12/22/21 10:30 Actual Procedures p Cystoscopy and Right Retrograde Pyelogram, aspiration of urine, and Insertion of Right Ureteral Stent - Gregory Lopez DO Surgeon Gregory Lopez, II, DO Drier Helper None Estimated Blood Loss 0 Findings Consistent with Post-Op Diagnosis Stent placed in good position. Significant bloody/old clot discharge after manipulating past distal stone. Clear urine in renal pelvis. Specimens Right Renal pelvis urine Drains 6 Fr Multilength Anesthesia Type MAC Complications none Disposition Disposition: Recovery Room Indications Patient with obstruction. Risks and benefits discussed at length. Description of Procedure Patient was consented and brought back to the operating room. Patient was placed under anesthesia in the supine position and moved to the dorsal lithotomy position. Patient was prepped and draped in the regular sterile fashion. A time out was completed. A 30degree Cystoscope was placed into the bladder and the entire bladder was examined. The UO's were identified. The UO was cannulized with a catheter and with manipulation was able to go past the distal stone. A large amount of bloody appearing debris drained. Manipulation past the other two stones showed more clear urine. An aspiration was completed of the renal pelvis and a retrograde pyelogram was completed. A wire was then placed. With the wire in place, a 6 Fr Double J stent was placed. It was confirmed with fluoroscopy. With the stent in place, the bladder was emptied. The scope was removed. The patient was cleaned, aroused from anesthesia, and transferred to the pacu in stable condition having tolerated the procedure well with no complications. I was present and participated in all aspects of the procedure. The patient will be monitored in the PACU until transferred. Continue observation. Transfer back to floor. Plan to set up for stone treatment in 1-3 weeks. Significant bilateral stone with large burden in pelvis and right ureteral stones. I attest to the content of the Intraoperative Record and any orders documented therein. Any exceptions are noted below.
--- NOTE | 2021-12-22 14:13 | Anesthesiology Progress Note ---
Date of Service December 22, 2021 Anesthesia Post Procedure Vital Signs Vital Signs: Temp Pulse Pulse Pulse Pulse Resp BP 12/22/21 13:55 36.3 C L 70 15 12/22/21 13:45 78 12 12/22/21 13:35 82 12 12/22/21 13:27 36.6 C 88 13 12/22/21 08:00 36.9 C 77 18 12/21/21 22:39 37.0 C 80 16 12/21/21 16:40 37.2 C 102 H 16 12/21/21 16:20 66 14 148/78 H 12/21/21 16:00 78 20 BP BP Pulse Ox 12/22/21 13:55 128/77 92 12/22/21 13:45 117/78 92 12/22/21 13:35 113/75 92 12/22/21 13:27 111/68 99 12/22/21 08:00 132/83 93 12/21/21 22:39 143/82 H 94 12/21/21 16:40 137/80 96 12/21/21 16:20 98 12/21/21 16:00 145/78 H 98 Pain Intensity Right Flank: Pain Intensity: 6 Transfer of Care Handoff Completed per policy Notes Mental Status: alert / awake / arousable and participated in evaluation Patient Amnestic to Procedure: Yes Nausea / Vomiting: adequately controlled Pain: adequately controlled Airway Patency, RR, SpO2: stable & adequate BP & HR: stable & adequate Hydration State: stable & adequate Anesthetic Complications: no major complications apparent and Pt Satisfied with anesthetic care
[2021-12-22] MEDS ORDERED: DIATRIZOATE MEGLUMINE 30% 100ML VIAL INSTIL ONE (14:34)
--- NOTE | 2021-12-22 15:40 | Fluoroscopy Report ---
FL retrograde includes kub CLINICAL HISTORY: Right flank pain. Right ureteral calculi with hydronephrosis. COMPARISON STUDY: Abdomen and pelvis CT 12/21/2021. FLUOROSCOPY TIME: 26 seconds. FINDINGS: 2 fluoroscopic spot images of the abdomen and pelvis demonstrate retrograde opacification o f the right renal collecting system with a right ureteral stent. The ureteral stent appears in good p osition. IMPRESSION: Fluoroscopic assistance provided for right ureteral stent placement which appears in good position. ACT 112: Negative or not required by law. Electronically signed by: Jeremi Cuevas M.D. 12/22/2021 3:39 PM
[2021-12-22 16:37] LABS: BUN Creatinine Ratio 13.7 (10-20); Calcium 8.7 mg/dl (8.5-10.1); Creatinine Clr Calc Pharmacy 33.8 ml/min; Est GFR (African American) 39.1 ml/min; Est GFR (Non-African American) 33.8 ml/min; Potassium 4.3 mmol/L (3.5-5.1)
[2021-12-22] MEDS ORDERED: KETOROLAC TROMETHAMINE 15 MG/ML VIAL IV PRN (17:00)
[2021-12-22] MEDS ORDERED: PHENAZOPYRIDINE HCL 200 MG TAB PO PRN (18:30)
[2021-12-22] MEDS: ATORVASTATIN 40 MG TAB PO SCH (21:51)
[2021-12-22] MEDS: allopurinoL 100 MG TAB PO SCH (21:51)
[2021-12-22] MEDS: CIPROFLOXACIN 250 MG TAB PO SCH (22:02)
[2021-12-23 06:48] LABS: Hematocrit (blood only) 31.8 % (42-52); Hemoglobin 10.9 g/dL (14.0-18.0); Mean Corpuscular Hemoglobin 32.3 pg (25-34); Mean Corpuscular Hgb Conc 34.3 g/dL (32-36); Mean Corpuscular Volume 94.4 fL (80-100); Mean Platelet Volume 10.3 fL (7.4-10.4); Platelet Count 187 K/uL (130-400); RDW Coefficient of Variation 12.5 % (11.5-14.5); RDW Standard Deviation 43.4 fL (36.4-46.3); Red Blood Count 3.37 M/uL (4.7-6.1); White Blood Count 5.61 K/uL (4.8-10.8)
[2021-12-23 07:10] LABS: BUN Creatinine Ratio 15.5 (10-20); Calcium 8.5 mg/dl (8.5-10.1); Creatinine Clr Calc Pharmacy 46.3 ml/min; Est GFR (African American) 57.2 ml/min; Est GFR (Non-African American) 49.3 ml/min; Potassium 4.1 mmol/L (3.5-5.1)
--- NOTE | 2021-12-23 07:21 | Discharge Summary ---
Date of Service December 23, 2021 Admission HPI Per Admitting Provider 56 YOM with past medical history of: DMII, HLD, HTN, Gout. Patient comes to the hospital today after visit with PCP on [id number] for complaints of back pain, decreased urine stream, and pelvic pain. The patient was started on Flomax as outpatient and had BMP, UA, and renal ultrasound performed as outpatient. His [employer] was noted to be increased so he was referred to the [facility] for evaluation. He had a CT scan performed following his renal ultrasound. Urology was consulted by the EMD and Hospitalist service was consulted for admission. The patient has multiple bilateral renal stones with right side obstruction and moderate right sided hydronephrosis. His UA is likely consistent with contaminant- will hold on further Rocephin. Patient denies any fevers or chills, but has noted increase in right sided flank and back pain with radiation to the testicles. The pain comes in waves and is rated 7-8/10 when it is on-going. He has been trying to medicate at home with Advil, Tylenol, and Oxycodone with severe pain, he does endorse decrease in appetite and fluid intake. Also endorses some hematuria and decrease in his urine stream. He has not followed up with urology in the past and is unsure of family history of prostate cancer or history of enlargement. Patient will be admitted to the medical floor, diet as tolerated, LR for hydration, dilaudid and tylenol for pain control, transition to sliding scale insulin for BG >180. NPO after midnight. Patient has not had his COVID vaccines and his COVID test on admission is: NEGATIVE Admission Exam Per Admitting Provider General: awake, alert, no apparent distress Head: Normocephalic, atraumatic ENT: PERRL, EOMI, no pharyngeal exudate, mucous membranes moist Neuro: AAO x 3, speech clear and appropriate, strength intact bilaterally 5/5, sensation intact and equal all extremities and dermatomes, no pronator drift Chest: equal rise and fall of the chest, no accessory muscle use, no heaves or thrills, Clear to auscultation, on room air, Cardiac: Regular rate and rhythm, telemetry reviewed, skin warm dry, cap refill <3 seconds, peripheral pulses +2 no JVD, no murmur, no edema GI: NABS x 4 quadrants, softly distended, tympanic on percussion, nontender to palpation, no rebound, guarding or tenderness : Spontaneously voiding, no pain, no CVA tenderness, Extremities: Normal inspection, no peripheral edema or erythema, calfs nontender to palpation Psych: Normal mood and affect Skin: no rash or erythema Principal Diagnosis Kidney Stone Discharge Exam Constitutional WD/WN, vitals as above cooperative and comfortable Eyes PERRL, conjunctivae normal, anicteric sclerae ENMT external ear and nose normal, oropharynx normal Neck trachea midline, no thyromegaly Respiratory normal respiratory effort, lungs clear to auscultation Cardiovascular RRR, no murmur, no edema Chest (Breasts) Chest: normal inspection of chest Gastrointestinal (Abdomen) Inspection/Auscultation: abdomen normal to inspection and normal bowel sounds Skin no rashes, warm and dry Discharge Data Allergies Allergy/AdvReac Type Severity Reaction Status Date / Time No Known Allergies Allergy Verified 12/21/21 11:33 Consultations 12/21/21 12:37 ED Decision to Admit Stat 12/21/21 16:41 Consult Urology Routine Procedures Performed Operation Date: 12/22/21 10:30 Actual Procedures p Cystoscopy, Right Retrograd Plyogram and Insertion of Right Ureteral Stent - Gregory Lopez, DO Ordered Studies 12/21/21 11:24 CT abd pelvis wo con Stat 12/22/21 FL retrograde includes kub Routine Hospital Course (1) Right ureteral calculus: 56yo Male with PMH gout, HTN, HLD, DM2 here for b/l ureterolithiasis with right obstruction Started ciprofloxacin 250mg BID for 3 days Ordered PRN Pyridium 100mg TID Patient to follow up with Urology in 1-3 weeks Patient to follow up with PCP in 1 week (1) Bilateral renal stones: Plan: Multiple bilateral renal stones- 3 stones up to 8mm on right obstructive associated with right sided hydronephrosis. Seen on abd CT. Started IVF, placed NPO, pain controlled with tylenol dilaudid and toradol, continued flomax. Urology consulted, stent placed 12/22 with great improvement to pain per patient. Urology recommended 3 day abx, pyridium for stent discomfort, continue flomax and oral hydration, strain urine for stones. (2) Difficulty urinating: Plan: As above, likely obstructive from renal stones and enlarged prostate. Resolved post stent placement (3) JYOTI (acute kidney injury): Plan: DEDRICK III- multifactorial to renal stone, Advil useage, hypovolemia. Held lisinopril, initial creat 2.34 downtrended to 1.55 post stent placement. Patient may resume his lisinopril given his improvement of his creatinine. (4) Benign essential hypertension: Plan: Held lisinopril upon admission, may resume upon discharge (5) Diabetes mellitus: Plan: Patient to resume home diabetic regime (6) Mixed hyperlipidemia: Plan: Continue statin (2) Diabetes mellitus: (3) Mixed hyperlipidemia: (4) JYOTI (acute kidney injury): (5) Bilateral renal stones: (6) Gout: Total Time Total Time Spent Total Time Spent (In Minutes): see attending attestation Discharge Plan Discharge Items Patient Disposition: Home - Self-Care Reason For Visit: JYOTI, KIDNEY STONE Discharge Diagnosis: Kidney Stone Activity: Resume your previous activity Non-emergency contact: Primary Care Provider Call non-emergency contact if: you have any medication questions, your symptoms worsen, your pain is not controlled and you have a fever Follow-up/Referrals: Sharron Gillespie CRNP [Primary Care Provider] - Gregory Lopez DO [Physician] - (follow up in 1-3 weeks for right kidney stone removal) Diet: Regular Addtl Attending Provider Instructions: You were admitted to the hospital for obstructive kidney stones on your right side. You were treated with pain medication, and a stent was placed past the kidney stones to allow urine to flow through. You will have an appointment with urology in 1-3 weeks to fully remove the obstructive kidney stones. You will be discharged with an antibiotic called Ciprofloxacin for 3 days. Continue your home Tamsulosin, a medication that helps relax the bladder and encourages urine flow, as well as Pyridium for any discomfort you feel with the stent. Please remember to drink lots of water at home, and to strain your urine for any smaller kidney stones so that we can better investigate the cause of your condition. Incidentally, you were found to have kidney stones in your left kidney as well. As they are currently not causing symptoms, we will not intervene at this time. A discharge summary will be sent to your primary care physician to ensure continuity of care. Please bring this discharge summary with you to your next office appointment so that your provider can review it at that time. Follow-up appointments: Make a follow-up appointment with your PCP within the next week. It is very important that you follow up with them shortly after discharge from the hospital. We have requested a follow-up appointment with your urologist within one to three weeks of discharge. Keep all your follow-up appointments as already scheduled. If you cannot make an appointment, notify your provider. Medications: Your medication list has been reviewed and reconciled upon discharge to ensure accuracy and continuity of care. An updated list of all your medications is included with your hospital discharge paperwork. Please review this list closely, and make note of any changes. * We sent a new medication called Ciprofloxacin, an antibiotic, to your pharmacy. Take Ciprofloxacin 250mg one tablet twice a day for 3 days starting from today. You have recieved your first dose while in the hospital. * Continue to take Tamsulosin 0.4mg one tablet daily until you are able to follow up with urology. * We sent a new medication called Pyridium to your pharmacy. You may take Pyridium 200mg one tablet up to three times a day for stent discomfort. Take your medications as instructed; do not skip a dose of your medicines. Make sure all of your doctors know every medicine you are taking (including cxvu-cin-vkgoyya medicines, vitamins, and supplements). Call your primary care provider before taking any new medicines (including hzxx-wax-ijfuuoa medicines, vitamins, and supplements), because some of these may interact with your current medications, or may make your symptoms worse. Tell your primary care provider if you cannot afford your medications. CONTACT YOUR PRIMARY CARE PROVIDER if you experience any of the following: Bloody urine, fever, flank pain Difficulty following your treatment plan, or difficulty taking medications CALL 911 OR GO TO THE EMERGENCY DEPARTMENT if you experience any of the following: Sudden, severe abdominal pain or nausea/vomiting Severe chest pain, or chest pain that radiates (moves) to your jaw or arm Sudden, severe shortness of breath or difficulty breathing Thank you for allowing us to participate in your care. Pending Studies at Discharge: No Stand-Alone Forms: My Neuronex, Smoking Cessation Medications and DC Order Prescriptions: New ciprofloxacin HCl 250 mg tablet 250 mg PO BID 3 Days Qty: 5 RF: 0 phenazopyridine [Pyridium] 100 mg tablet 100 mg PO TID 7 Days Qty: 21 RF: 0 Continued calcipotriene 0.005 % cream 1 appln topical .APPLY A THIN LAYER T Qty: 1 RF: 0 (DME) OneTouch Ultra Blue Test Strip strip See Dose Instructions .ROUTE .MEDSUPPLY Qty: 100 RF: 0 atorvastatin 40 mg tablet 40 mg PO HS RF: 0 allopurinol 100 mg tablet 100 mg PO HS RF: 0 tamsulosin [Flomax] 0.4 mg capsule 0.4 mg PO QAM RF: 0 lisinopril 5 mg tablet 5 mg PO HS RF: 0 Janumet XR 100-1,000 mg tablet, ER multiphase 24 hr 1 tab PO QDD RF: 0 Discharge Orders: Discharge Order (Routine); Ordered 12/23/21 Ordered By: Lucia Finley/Other Patient Handouts: Ciprofloxacin Oral Tablet 250 mg, Pyridium Oral Tablet 100 mg, Understanding Kidney Stones Admission Data Admit Date/Time: 12/21/21 13:21 Attending Provider: Jovani Danielle Admit Provider: Rebecca Young Primary Care Provider: Sharron Gillespie Other Providers: Rebecca Young ; Gregory Lopez Other Interventions: Discharge Summary Assessment (RN) Last Done: 12/23/21 11:58 Supervising Physician Co-Signing Physician Notes Patient seen and examined independently of PGY-1 Dr. Fine. Agree with history, exam findings. assessment and plan of care as outlined. In brief, Mr. Busch is a 56 year old male with history of HTN, HLD, DM and gout admitted with obstructing renal stones and hydronephrosis. Feeling well. Having some discomfort in the right flank from the stent and dysuria, but other myers feels well and is eager to be discharged. VS and nursing notes reviewed. Labs and imaging reviewed. 1. bilateral renal stones; right obstructing stone with hydronephrosis. flomax, s/p stent yesterday with urology. D/C with cipro x 3 more days, pyridium PRN dysuria. Continue home flomax. 2. JYOTI--post-renal. Improving Cr down to 1.44. Expect that this will continue to improve. 3. HTN. Held ROQUE inhibitor while inpatient, but can restart this when he returns home. 4. DM. basal-bolus insulin. Restart Janumet on discharge. 5. gout. continue allopurinol. Dispo: discharge home today. Follow up with PCP in 1 week. Follow up with urology in 1-3 weeks. I personally spent 25 minutes discharge planning for this patient. Resident Activity Tracking Resident Involvement: Resident Care Provided Care Provided: Adult [facility] Medicine
[2021-12-23] MEDS: LACTATED RINGER'S 1,000 ML IV SCH ×2 (07:56→07:57)
[2021-12-23] MEDS: CIPROFLOXACIN 250 MG TAB PO SCH (08:35)
[2021-12-23] MEDS: TAMSULOSIN HCL 0.4 MG CAP PO SCH (08:35)
[2021-12-23] MEDS: INSULIN ASPART PER UNIT SC SCH ×2 (08:42→13:04)
== END 2021-12-23 14:59 | disposition home or self-care (01) | DRG 661 ==
LOC: ED 10:16 → SUATTDRO 13:21 → 3N 13:21

== ENCOUNTER 2024-11-10 20:29 | Inpatient (IN) ==
--- NOTE | 2024-11-10 21:09 | Emergency Department Note ---
Impression & Plan Acute kidney injury superimposed on chronic kidney disease, Hyperglycemia, Elevated procalcitonin, Acute UTI (urinary tract infection), Hydronephrosis ED Provider Note HISTORY OF PRESENT ILLNESS: Patient is a 59-year-old male presenting with right flank pain. Patient reports that pain started acutely at 1600. States that he has not felt well for most the day and then pain started acutely at 1600. States the pain is progressively gotten worse. He took an oxycodone at 1920 without any relief of symptoms. He describes the pain and is a constant burning sensation in his right lower flank. He states he feels similar to his previous history of kidney stones. He states that he recently had bilateral ureteral stents, with his right stent being removed in early October and the left one being removed last week. He states that he has been having ongoing fevers for the last 8 days. Reports they are low-grade fevers of 99 to low 100. He states he has been having bodyaches. He was tested for COVID and the flu by his primary care provider and that was negative. Unclear etiology for his low-grade fevers. He denies any dysuria or hematuria. He denies any chest pain or shortness of breath or cough. ROS: as above PHYSICAL EXAM: Constitutional: Patient appears in no acute distress. HENT: Head: Normocephalic and atraumatic. Eyes: EOMI, PERRL Mouth/Throat: Mucous membranes moist. Neck: Trachea midline. Neck supple. Cardiovascular: RRR, No murmurs, rubs or gallops. Intact distal pulses. Pulmonary/Chest: No respiratory distress. Breath sounds clear and equal bilaterally. No wheezes or rales Abdominal: Abdomen soft, no tenderness, rebound or guarding. Musculoskeletal: No edema, tenderness or deformity noted. Skin: Warm and dry. No rash, erythema, pallor or cyanosis Psychiatric: Appropriate mood and affect for situation. Neurological: Alert and keenly responsive. CN II-XII grossly intact, moving all extremities equally and fully. MDM: - Vitals signs showed hypertension. - History obtained via patient. History as above. - Chronic conditions affecting care: medullary sponge kidney; CKD stage 3; DM-2 - Differential diagnoses include, but are not limited to: UTI; pneumonia; viral syndrome; ureteral stone; pyelonephritis - Order placed for continuous cardiac monitoring. At this time, monitor showed rate of 78 bpm with normal sinus rhythm, per my interpretation. - External medical records reviewed. Urology clinic note dated 11/02/2024 was reviewed. Patient was seen for stent removal. He had his left ureteral stent removed at that clinic appointment. - EKG interpreted by myself showed normal sinus rhythm. Rate 76 bpm. QT 372. No acute ischemic changes. - Laboratory workup interpreted by myself showed normal WBC; slight hyponatremia (Na 132); elevated anion gap (12); JYOTI on CKD (Cr 2.80 - baseline 1.7-1.8); hyperglycemia (glucose 393); elevated ALT (81); normal lipase; elevated procalcitonin (1.52) - Patient given 50 mcg IV fentanyl for pain control on arrival - Blood cultures obtained - Given 2g IV rocephin - Viral respiratory panel negative - UA negative for bacteria, but noted to have WBCs and positive leukocyte esterase. Given patient's recent urological procedure, this may be the source of his infection. - CXR negative for pneumonia, per my interpretation - Patient given 2L NS. Patient sepsis volume fluid calculation based on ideal body weight is 1772.70 mL - CT abdomen/pelvis with IV contrast showed mild right hydronephrosis with edema around the right renal pelvis and right ureter concerning for an ascending urinary tract infection. No overt signs of pyelonephritis. Noted to have multiple nonobstructive calyceal calculi in both kidneys. - Discussion was had with rn case manager about patient's case and need for admission - Hospitalist, Dr. Morris, consulted for admission - Patient admitted to [facility] for further evaluation and management. ASSESSMENT AND PLAN: Diagnosis: JYOTI on CKD; elevated procalcitonin; hyperglycemia; acute UTI; hydronephrosis Plan: admit Past Med/Surg History Problem List (Updated 11/11/24 @ 00:04 by Grace Gunn MD) Hydronephrosis (Acute) Acute UTI (urinary tract infection) (Acute) Hyponatremia Elevated procalcitonin (Acute) Hyperglycemia (Acute) Acute kidney injury superimposed on chronic kidney disease (Acute) Type 2 diabetes mellitus with hyperlipidemia Eczema Right shoulder pain Stage 3b chronic kidney disease Vitamin D deficiency Encounter for pre-operative examination Medullary sponge kidney Bilateral renal stones (Acute) Pelvic pain in male Gout (Chronic) NO ISSUES AT THIS TIME, TAKING GOUT MEDS PRN Medical History (Updated 11/11/24 @ 00:04 by Grace Gunn MD) Sinus bradycardia chronic and asymptomatic per chart review Eczema Elevated TSH Elevated TSH at 7.349, Free T4 WNL in January 2024 PCP monitoring per records Benign essential hypertension Hx of migraines only as a teen Medullary sponge kidney History of COVID-19 04/2022- HOME TEST, FEVER X 1, NO HOSPITALIZATION, NO CURRENT ISSUES History of kidney stones Surgical History History of neck surgery Lipoma removed 10/2021 S/P cystoscopy with ureteral stent placement multiple; most recent: 10/11/24: GA: LMA#4 iGel good seal; no complications History of appendectomy Family History Father High cholesterol Cardiac disorder Myocardial infarction Hypertension Grandfather (Maternal) Diabetes Cardiac disorder Myocardial infarction Hypertension Grandfather (Paternal) Diabetes Cardiac disorder Myocardial infarction Hypertension Aunt Depression Breast cancer Cancer Mother Diabetes Grandmother (Maternal) Diabetes Other Colorectal cancer No family history of adverse response to anesthesia Denies family history of Ovarian cancer Prostate cancer Social History Smoking Status: Never smoker Second Hand Exposure: No; Do You Dip or Chew Tobacco: No; Hx Alcohol Use: No Hx Substance Use: No Preferred Language: Upper Sorbian Communication Ability: Effective Visual Impairment: No Limitations Director Of Therapy Services Required: No Beliefs That Will Affect Care: None marital status: Current Living Situation: Spouse 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 How many Children do You have: 2 Feels Safe at Home: Yes Childhood Exposure to Second-Hand Smoke: Yes Diet: regular caffeine: Yes Dental Care, Regularly: No Physical Activity Frequency: Daily Seatbelt Use: sometimes Sunscreen Use: Yes Assistive Devices: Glasses Allergies Allergies Allergy/AdvReac Type Severity Reaction Status Date / Time semaglutide [From Ozempic] AdvReac Mild nausea and Verified 11/03/24 12:11 vomiting dulaglutide [From Trulicity] AdvReac nausea and Verified 11/03/24 12:11 vomiting Home Meds Home Medications Medication Instructions Recorded Confirmed allopurinol 100 mg tablet 100 mg PO HS PRN gout 09/30/24 11/10/24 empagliflozin 25 mg tablet 25 mg PO HS 09/30/24 11/10/24 (Jardiance) ergocalciferol (vitamin D2) 1,250 50,000 unit PO Q7D 09/30/24 11/10/24 mcg (50,000 unit) capsule pyrithione zinc 0.25 % topical 1 applic topical DAILY PRN 09/30/24 11/10/24 spray (DermaZinc [place]) psoriasis Previous Rx's Medication Instructions Recorded blood sugar diagnostic (OneTouch #100 ea 05/02/19 Ultra Blue Test Strip) potassium citrate 15 mEq (1,620 15 meq PO BID #180 tabs 03/01/24 mg) tablet,extended release metformin 500 mg tablet,extended 1,000 mg (2 x 500 mg) PO BID #120 03/23/24 release 24 hr tabs phenazopyridine 200 mg tablet 200 mg PO Q8H PRN pain #10 tabs 10/11/24 (Pyridium) tamsulosin 0.4 mg capsule 0.4 mg PO HS #30 caps 10/11/24 oxycodone-acetaminophen 7.5 mg-325 1 tab PO Q8H PRN pain #7 tabs 10/25/24 mg tablet (Percocet) atorvastatin 40 mg tablet 40 mg PO HS #90 tabs 11/08/24 lisinopril 5 mg tablet 5 mg PO HS #90 tabs 11/08/24 Results & Data (ED) Vital Signs Vital Signs - 24 hr 11/10/24 20:31 11/10/24 21:02 11/10/24 21:50 Temperature 36.5 C Temperature Source Temporal Artery Scan Pulse Rate 88 80 78 Pulse Rate [Apical] Respiratory Rate 20 23 Respiratory Depth Normal Blood Pressure 156/98 H Blood Pressure [Left Arm] Blood Pressure Mean 117 Blood Pressure Mean [Left Arm] Blood Pressure Position [Left Arm] Pulse Oximetry 99 91 Oxygen Delivery Method Room Air Room Air Sepsis Recent Fever Within 48 Hours No Sepsis New/Unexplained Change in Mental Status No Sepsis Action Taken by Nursing No Action Required 11/10/24 22:29 11/10/24 22:29 Temperature Temperature Source Pulse Rate Pulse Rate [Apical] 82 Respiratory Rate 15 Respiratory Depth Blood Pressure Blood Pressure [Left Arm] 154/91 H Blood Pressure Mean Blood Pressure Mean [Left Arm] 112 Blood Pressure Position [Left Arm] Semi-fowlers Pulse Oximetry 96 Oxygen Delivery Method Room Air Room Air Sepsis Recent Fever Within 48 Hours Sepsis New/Unexplained Change in Mental Status Sepsis Action Taken by Nursing Laboratory Data 11/10/24 20:51 11/10/24 20:51 Lab Results 11/10/24 11/10/24 11/10/24 Range/Units 20:50 20:51 22:25 WBC 9.13 (4.8-10.8) K/ul RBC 3.78 L (4.70-6.10) M/uL Hgb 12.6 L (14.0-18.0) g/dl Hct 35.8 L (42.0-52.0) % MCV 94.7 (80.0-100.0) fL MCH 33.3 (25.0-34.0) pg MCHC 35.2 (32.0-36.0) g/dL RDW Std Deviation 43.8 (36.4-46.3) fL RDW Coeff of Jesse 12.5 (11.5-14.5) % Plt Count 319 (130-400) K/uL MPV 10.8 (9.4-12.4) fL Immature Gran % (Auto) 1.2 % Neut % (Auto) 81.5 % Lymph % (Auto) 7.1 % Barton % (Auto) 7.1 % Eos % (Auto) 2.8 % Baso % (Auto) 0.3 % Neut # (Auto) 7.43 H (1.40-6.50) K/uL Lymph # (Auto) 0.65 L (1.20-3.40) K/uL Barton # (Auto) 0.65 H (0.11-0.59) K/uL Eos # (Auto) 0.26 (0.00-0.50) K/uL Baso # (Auto) 0.03 (0.00-0.20) K/uL Immature Gran # (Auto) 0.11 (0.01-0.20) K/uL PT Cancelled INR Cancelled APTT Cancelled PTT Ratio Cancelled Sodium 132 L (136-145) mmol/L Potassium 4.7 (3.5-5.1) mmol/L Chloride 100 (98-107) mmol/L Carbon Dioxide 20 L (21-32) mmol/L Anion Gap 12 H (3-11) BUN 37 H (6-23) mg/dl Creatinine 2.80 H (0.6-1.4) mg/dl Est Cr Clr Drug Dosing 23.8 ml/min eGFR 25.20 BUN/Creatinine Ratio 13.2 (10-20) Glucose 393 H* (70-99(Fasting)) mg/dl POC Glucose (70-99) mg/dl Lactate 1.1 (0.4-2.0) mmol/L Calcium 9.0 (8.6-10.3) mg/dl Magnesium 2.2 (1.7-2.4) mg/dl Total Bilirubin 0.3 (0.2-1.0) mg/dl AST 34 (13-39) U/L ALT 81 H (7-52) U/L Alkaline Phosphatase 116 H (34-104) U/L Troponin I High Sens 7.0 (0-20) pg/ml Total Protein 7.5 (6.0-8.3) gm/dl Albumin 3.5 (3.4-5.0) gm/dl Globulin 4.0 (2.5-4.0) gm/dl Albumin/Globulin Ratio 0.9 (0.9-2) Lipase 68 (11-82) U/L Procalcitonin 1.52 H (0-0.5) ng/ml Urine Color Yellow Urine Appearance Clear (Clear) Urine pH 5.5 (4.5-7.5) Ur Specific [place] 1.018 (1.000-1.030) Urine Protein Trace H (Negative) Urine Glucose (UA) 3+ H (Negative) Urine Ketones Negative (Negative) Urine Blood 1+ H (Negative) Urine Nitrite Negative (Negative) Urine Bilirubin Negative (Negative) Urine Urobilinogen Negative (Negative) Ur Leukocyte Esterase Trace H (Negative) Urine WBC (Auto) 11-20 H (0-5) /hpf Urine RBC (Auto) 0-2 (0-2) /hpf U Hyaline Cast (Auto) 3-5 H (0-2) /lpf U Epithel Cells (Auto) 0-2 (0-2) /hpf Urine Bacteria (Auto) None Seen (None Seen) Adenovirus (PCR) Not Detected (NotDetected) B. pertussis DNA (PCR) Not Detected (NotDetected) B.parapertussis DNA PCR Not Detected (NotDetected) C. pneumoniae DNA (PCR) Not Detected (NotDetected) Coronavirus OC43 (PCR) Not Detected (NotDetected) Coronavirus HKU1 (PCR) Not Detected (NotDetected) Coronavirus 229E (PCR) Not Detected (NotDetected) SARS-CoV-2 (PCR) Not Detected (NotDetected) Coronavirus NL63 (PCR) Not Detected (NotDetected) Human Metapneumovir PCR Not Detected (NotDetected) Influenza Type A (PCR) Not Detected (NotDetected) Influenza Type B (PCR) Not Detected (NotDetected) M. pneumoniae (PCR) Not Detected (NotDetected) Parainfluenza 1 (PCR) Not Detected (NotDetected) Parainfluenza 2 (PCR) Not Detected (NotDetected) Parainfluenza 3 (PCR) Not Detected (NotDetected) Parainfluenza 4 (PCR) Not Detected (NotDetected) RSV (PCR) Not Detected (NotDetected) Entero/Rhino (PCR) Not Detected (NotDetected) 11/10/24 11/10/24 Range/Units 23:49 23:53 WBC (4.8-10.8) K/ul RBC (4.70-6.10) M/uL Hgb (14.0-18.0) g/dl Hct (42.0-52.0) % MCV (80.0-100.0) fL MCH (25.0-34.0) pg MCHC (32.0-36.0) g/dL RDW Std Deviation (36.4-46.3) fL RDW Coeff of Jesse (11.5-14.5) % Plt Count (130-400) K/uL MPV (9.4-12.4) fL Immature Gran % (Auto) % Neut % (Auto) % Lymph % (Auto) % Barton % (Auto) % Eos % (Auto) % Baso % (Auto) % Neut # (Auto) (1.40-6.50) K/uL Lymph # (Auto) (1.20-3.40) K/uL Barton # (Auto) (0.11-0.59) K/uL Eos # (Auto) (0.00-0.50) K/uL Baso # (Auto) (0.00-0.20) K/uL Immature Gran # (Auto) (0.01-0.20) K/uL PT INR APTT PTT Ratio Sodium (136-145) mmol/L Potassium (3.5-5.1) mmol/L Chloride (98-107) mmol/L Carbon Dioxide (21-32) mmol/L Anion Gap (3-11) BUN (6-23) mg/dl Creatinine (0.6-1.4) mg/dl Est Cr Clr Drug Dosing ml/min eGFR BUN/Creatinine Ratio (10-20) Glucose (70-99(Fasting)) mg/dl POC Glucose 311 H* 291 H (70-99) mg/dl Lactate (0.4-2.0) mmol/L Calcium (8.6-10.3) mg/dl Magnesium (1.7-2.4) mg/dl Total Bilirubin (0.2-1.0) mg/dl AST (13-39) U/L ALT (7-52) U/L Alkaline Phosphatase (34-104) U/L Troponin I High Sens (0-20) pg/ml Total Protein (6.0-8.3) gm/dl Albumin (3.4-5.0) gm/dl Globulin (2.5-4.0) gm/dl Albumin/Globulin Ratio (0.9-2) Lipase (11-82) U/L Procalcitonin (0-0.5) ng/ml Urine Color Urine Appearance (Clear) Urine pH (4.5-7.5) Ur Specific [place] (1.000-1.030) Urine Protein (Negative) Urine Glucose (UA) (Negative) Urine Ketones (Negative) Urine Blood (Negative) Urine Nitrite (Negative) Urine Bilirubin (Negative) Urine Urobilinogen (Negative) Ur Leukocyte Esterase (Negative) Urine WBC (Auto) (0-5) /hpf Urine RBC (Auto) (0-2) /hpf U Hyaline Cast (Auto) (0-2) /lpf U Epithel Cells (Auto) (0-2) /hpf Urine Bacteria (Auto) (None Seen) Adenovirus (PCR) (NotDetected) B. pertussis DNA (PCR) (NotDetected) B.parapertussis DNA PCR (NotDetected) C. pneumoniae DNA (PCR) (NotDetected) Coronavirus OC43 (PCR) (NotDetected) Coronavirus HKU1 (PCR) (NotDetected) Coronavirus 229E (PCR) (NotDetected) SARS-CoV-2 (PCR) (NotDetected) Coronavirus NL63 (PCR) (NotDetected) Human Metapneumovir PCR (NotDetected) Influenza Type A (PCR) (NotDetected) Influenza Type B (PCR) (NotDetected) M. pneumoniae (PCR) (NotDetected) Parainfluenza 1 (PCR) (NotDetected) Parainfluenza 2 (PCR) (NotDetected) Parainfluenza 3 (PCR) (NotDetected) Parainfluenza 4 (PCR) (NotDetected) RSV (PCR) (NotDetected) Entero/Rhino (PCR) (NotDetected) Administered Medications Discontinued Medications Fentanyl Citrate (Fentanyl Citrate Pf 100 Mcg/2 Ml Vial) 50 mcg IV NOW STA Stop: 11/10/24 21:05 Last Admin: 11/10/24 21:19 Dose: 50 mcg Documented By: CEF Sodium Chloride (Nss) 1,000 mls @ 999 mls/hr IV .Q1H1M ONE Stop: 11/10/24 22:14 Last Infusion: 11/10/24 22:23 Dose: Infused Documented By: Admin: 11/10/24 21:21 Dose: 999 mls/hr Documented By: CEF Ceftriaxone Sodium (Rocephin) 2,000 mg in 50 mls @ 100 mls/hr IV NOW STA Stop: 11/10/24 22:23 Last Infusion: 11/10/24 23:04 Dose: Infused Documented By: Admin: 11/10/24 22:29 Dose: 100 mls/hr Documented By: CEF Sodium Chloride (Nss) 1,000 mls @ 999 mls/hr IV .Q1H1M ONE Stop: 11/10/24 23:54 Last Admin: 11/10/24 22:30 Dose: 999 mls/hr Documented By: CEF Ioversol (Optiray 320 100ml) 70 ml IV ONCE ONE Stop: 11/10/24 23:15 Last Admin: 11/10/24 23:15 Dose: 70 ml Documented By: VALENTINA Imaging Data Radiologist's Impression: Abdomen/Pelvis CT 11/10/24 21:04 Exam(s): CT ABDOMEN + PELVIS With Contrast IV Amt: 70 ml optiray 320 EXAM: CT Abdomen and Pelvis With Intravenous Contrast CLINICAL HISTORY: Reason for exam: R flank pain; hx of nephrolithiasis. TECHNIQUE: Axial computed tomography images of the abdomen and pelvis with intravenous contrast. CTDI is 14.67 mGy and DLP is 730.72 mGy-cm. Automated exposure control was utilized for the study. A dose lowering technique was utilized adhering to the principles of ALARA. CONTRAST: Patient received 70 ml optiray 320 of IV contrast COMPARISON: October 10, 2023 FINDINGS: Lung bases: Unremarkable. No mass. No consolidation. ABDOMEN: Liver: Unremarkable. No mass. Gallbladder and bile ducts: Unremarkable. No calcified stones. No ductal dilation. Pancreas: Unremarkable. No mass. No ductal dilation. Spleen: Unremarkable. No splenomegaly. Adrenals: Unremarkable. No mass. Kidneys and ureters: Mild right hydronephrosis as well as edema surrounding the right renal pelvis and right ureter. No ureterolithiasis is seen. Consider ascending urinary tract infection. No overt signs of pyelonephritis at this time. There are multiple nonobstructive calyceal calculi in both kidneys with at least 8 calculi on the right and 9 calculi in the left measuring up to 6 mm. No ureterolithiasis is seen. Stomach and bowel: Unremarkable. No obstruction. No mucosal thickening. PELVIS: Appendix: The appendix has been removed. Bowel loops are nondilated. No acute inflammatory changes are seen involving the bowel. Bladder: Unremarkable. No mass. Reproductive: Unremarkable as visualized. ABDOMEN and PELVIS: Intraperitoneal space: Unremarkable. No free air. No significant fluid collection. Retroperitoneal space: Slight perirenal edema on the left as well. Bones/joints: Mild degenerative changes in the spine. No acute fracture or subluxation is seen. Soft tissues: See above. Vasculature: Unremarkable. No abdominal aortic aneurysm. Lymph nodes: Unremarkable. No enlarged lymph nodes. IMPRESSION: 1. Mild right hydronephrosis as well as edema surrounding the right renal pelvis and right ureter. No ureterolithiasis is seen. Consider ascending urinary tract infection. No overt signs of pyelonephritis at this time. 2. There are multiple nonobstructive calyceal calculi in both kidneys with at least 8 calculi on the right and 9 calculi in the left measuring up to 6 mm. No ureterolithiasis is seen. 3. Slight perirenal edema on the left as well. 4. The appendix has been removed. Bowel loops are nondilated. No acute inflammatory changes are seen involving the bowel. Electronically signed by: Flaquito Coulter MD 11/11/24 00:01 AM Chest X-Ray 11/10/24 21:54 Exam(s): XR CXR 1 VIEW EXAM: XR Chest, 1 View CLINICAL HISTORY: Sepsis TECHNIQUE: Frontal view of the chest. COMPARISON: October 01, 2024 FINDINGS: Lungs: Unremarkable. No consolidation. Pleural space: Unremarkable. No pneumothorax. Heart: Unremarkable. No cardiomegaly. Mediastinum: Unremarkable. Normal mediastinal contour. Bones/joints: Mild osteophytosis in the lower thoracic spine. No acute fracture. Upper abdomen: There is no pneumoperitoneum under the diaphragm. IMPRESSION: No acute findings in the chest. Electronically signed by: Flaquito Coulter MD 11/10/24 23:42 PM Discharge Plan Visit Data Chief Complaint: Flank Pain Stated Complaint: KIDNEY STONE, ABD PAIN, ED Provider: Grace Gunn Discharge Problem: Acute kidney injury superimposed on chronic kidney disease, Hyperglycemia, Elevated procalcitonin, Acute UTI (urinary tract infection), Hydronephrosis Forms Stand Alone Forms: [facility] [place] [facility] Prescriptions Prescriptions: No Action metformin 500 mg tablet extended release 24 hr 1,000 mg PO BID Qty: 120 6RF Rx Instructions: d/c janumet atorvastatin 40 mg tablet 40 mg PO HS Qty: 90 3RF Rx Instructions: TAKE 1 TABLET ONCE DAILY ASDIRECTED lisinopril 5 mg tablet 5 mg PO HS Qty: 90 3RF Rx Instructions: TAKE 1 TABLET DAILY DIRECTED potassium citrate 15 mEq tablet extended release 15 meq PO BID Qty: 180 3RF (DME) OneTouch Ultra Blue Test Strip strip See Dose Instructions .ROUTE .MEDSUPPLY Qty: 100 0RF Dose Instruction: As directed Rx Instructions: As directed allopurinol 100 mg tablet 100 mg PO HS PRN (Reason: gout) DermaZinc [place] 0.25 % spray,non-aerosol 1 applic topical DAILY PRN (Reason: psoriasis) Rx Instructions: pt will pay out of pocket not covered by ins ergocalciferol (vitamin D2) 1,250 mcg (50,000 unit) capsule 50,000 unit PO Q7D Rx Instructions: TAKE 1 CAPSULE WEEKLY Jardiance 25 mg tablet 25 mg PO HS phenazopyridine [Pyridium] 200 mg tablet 200 mg PO Q8H PRN (Reason: pain) Qty: 10 0RF tamsulosin 0.4 mg capsule 0.4 mg PO HS Qty: 30 0RF oxycodone-acetaminophen [Percocet] 7.5-325 mg tablet 1 tab PO Q8H PRN (Reason: pain) Qty: 7 0RF Referrals Referrals: Sharron Gillespie CRNP [Primary Care Provider] -
[2024-11-10 21:10] LABS: Appearance Urine Clear (Clear); Bacteria Urine Automated None Seen (None Seen); Bilirubin Urine Negative (Negative); Blood Urine 1+ (Negative); Color Urine Yellow; Epithelial Cell Urine Auto 0-2 /hpf (0-2); Glucose Urine UA 3+ (Negative); Ketones Urine Negative (Negative); Leukocyte Esterase Urine Trace (Negative); Nitrite Urine Negative (Negative); Protein Urine Trace (Negative); RBC Urine Automated 0-2 /hpf (0-2); Specific Gravity Urine 1.018 (1.000-1.030); Urobilinogen Urine Negative (Negative); pH Urine 5.5 (4.5-7.5)
[2024-11-10] MEDS: fentaNYL citrate PF 100 MCG/2 ML VIAL IV STA (21:19)
[2024-11-10] MEDS: SODIUM CHLORIDE 0.9% 1,000 ML IV ONE ×2 (21:21→22:30)
[2024-11-10 21:56] LABS: Adenovirus PCR Not Detected (NotDetected); Albumin Globulin Ratio 0.9 (0.9-2); Albumin Level 3.5 gm/dl (3.4-5.0); BUN Creatinine Ratio 13.2 (10-20); Basophils # (auto) 0.03 K/uL (0.00-0.20); Basophils % (auto) 0.3 %; Bilirubin,Total 0.3 mg/dl (0.2-1.0); Bordetella parapertussis PCR Not Detected (NotDetected); Bordetella pertussis PCR Not Detected (NotDetected); Chlamydia pneumoniae PCR Not Detected (NotDetected); Coronavirus 229E PCR Not Detected (NotDetected); Coronavirus CoV-2 (COVID19)PCR Not Detected (NotDetected); Coronavirus HKU1 PCR Not Detected (NotDetected); Coronavirus NL63 PCR Not Detected (NotDetected); Coronavirus OC43PCR Not Detected (NotDetected); Creatinine Clr Calc Pharmacy 23.8 ml/min; Eosinophils # (auto) 0.26 K/uL (0.00-0.50); Eosinophils % (auto) 2.8 %; Hematocrit (blood only) 35.8 % (42.0-52.0); Hemoglobin 12.6 g/dl (14.0-18.0); Human Metapneumovirus PCR Not Detected (NotDetected); Immature Granulocytes # (auto) 0.11 K/uL (0.01-0.20); Immature Granulocytes % (auto) 1.2 %; Influenza A PCR Not Detected (NotDetected); Influenza B PCR Not Detected (NotDetected); Lymphocytes # (auto) 0.65 K/uL (1.20-3.40); Lymphocytes % (auto) 7.1 %; Mean Corpuscular Hemoglobin 33.3 pg (25.0-34.0); Mean Corpuscular Hgb Conc 35.2 g/dL (32.0-36.0); Mean Corpuscular Volume 94.7 fL (80.0-100.0); Mean Platelet Volume 10.8 fL (9.4-12.4); Monocytes # (auto) 0.65 K/uL (0.11-0.59); Monocytes % (auto) 7.1 %; Mycoplasma pneumoniae PCR Not Detected (NotDetected); Neutrophils # (auto) 7.43 K/uL (1.40-6.50); Neutrophils % (auto) 81.5 %; Parainfluenza Virus 1 PCR Not Detected (NotDetected); Parainfluenza Virus 2 PCR Not Detected (NotDetected); Parainfluenza Virus 3 PCR Not Detected (NotDetected); Parainfluenza Virus 4 PCR Not Detected (NotDetected); Platelet Count 319 K/uL (130-400); Potassium 4.7 mmol/L (3.5-5.1); RDW Coefficient of Variation 12.5 % (11.5-14.5); RDW Standard Deviation 43.8 fL (36.4-46.3); Red Blood Count 3.78 M/uL (4.70-6.10); Respiratory Syncytial VirusPCR Not Detected (NotDetected); Rhinovirus/Enterovirus PCR Not Detected (NotDetected); Total Protein 7.5 gm/dl (6.0-8.3); White Blood Count 9.13 K/ul (4.8-10.8)
[2024-11-10 22:17] LABS: Magnesium 2.2 mg/dl (1.7-2.4)
[2024-11-10] MEDS: cefTRIAXone SODIUM 2,000 MG/50 ML BAG IV STA (22:29)
[2024-11-10] MEDS: OPTIRAY 320 100ml IV ONE (23:15)
--- NOTE | 2024-11-10 23:43 | XRay Report ---
Exam(s): XR CXR 1 VIEW EXAM: XR Chest, 1 View CLINICAL HISTORY: Sepsis TECHNIQUE: Frontal view of the chest. COMPARISON: October 01, 2024 FINDINGS: Lungs: Unremarkable. No consolidation. Pleural space: Unremarkable. No pneumothorax. Heart: Unremarkable. No cardiomegaly. Mediastinum: Unremarkable. Normal mediastinal contour. Bones/joints: Mild osteophytosis in the lower thoracic spine. No acute fracture. Upper abdomen: There is no pneumoperitoneum under the diaphragm. IMPRESSION: No acute findings in the chest. Electronically signed by: Flaquito Coulter MD 11/10/24 23:42 PM
--- NOTE | 2024-11-10 23:46 | History & Physical Report ---
Date of Service November 10, 2024 Assessment & Plan (1) Bilateral renal stones: (2) Acute UTI (urinary tract infection): (3) Acute kidney injury superimposed on chronic kidney disease: (4) Medullary sponge kidney: (5) Hyperglycemia: (6) Hyponatremia: Plan Patient is a 59-year-old male with past medical history of stage IIIb CKD, history of medullary sponge kidneys, recurrent nephrolithiasis, type II DM, hyperlipidemia. He recently had stent placement 10/25 which were removed 11/02. Most recent CT 10/10 showed greater than 20 stones in left kidney and greater than 15 of right kidney. He presents today due to sudden onset right flank pain x 2 hours unrelieved by oxycodone. He has been admitted with an JYOTI and hyperglycemia. Will have IV fluids, IV antibiotics, n.p.o., urology consult. #BL renal stones/UTI/medullary sponge kidney Ongoing nephrolithiasis, s/p right stent 10/14 -10/25, left stent 10/25-11/02 CTAP showing no obstruction - mild hydronephrosis right kidney, no ureterolithiasis, consider ascending urinary tract infection, no pyelonephritis, multiple nonobstructive calculi bilateral kidneys UA does not appear infectious at this time - trace leukocyte esterase, no bacteria seen; follow urine culture Pro-Zack elevated to 1.52 Follow blood cultures - overall nonconcerning for sepsis given no leukocytosis, lactate negative, VSS Continue Rocephin gentle hydration overnight with IV NSS IV Tylenol prn and morphine prn N.p.o. Urology consulted continue tamsulosin #JYOTI history of stage IIIb CKD suspect secondary to stones above, however decreased oral intake Cr increased from 2.08 to 2.80, BUN elevated to 37 (baseline) - baseline Cr 1.7-1.8 UA showing trace protein FENa = 2.1% = intrinsic IVF as above- 2L NSS bolus in ED trend BMP Hold nephrotoxic agents - lisinopril #hyperglycemia T2DM controlled on metformin and Jardiance at home; hold Most recent A1C 7.5 in January 2024; repeat with am labs UA showing 3+ glucose glucose 393 -> 291 - will order 4U NovoLog on admission and recheck glucose 0230 236 - stable given NPO loose SSI with target BSG range 110-140mg/dL, CF 25, defer carb ratio #hyponatremia pseudohyponatremia NA 132 on admission - corrected for hyperglycemia 137 trend BMP Chronic stable diagnoses: HLD - continue statin gout - allopurinol prn VTE ppx: SCDs; defer chemical PPx given possible surgical management Diet: npo Dispo: med surg Admission and Anticipated Discharge Date Admission Date: 11/11/24 History of Present Illness Chief Complaint: flank pain Primary Care Provider: TRACI Henley Patient is a 59-year-old male with past medical history of stage IIIb CKD, history of medullary sponge kidneys, recurrent nephrolithiasis, type II DM, hyperlipidemia. He recently had stent placement 10/25 which were removed 11/02. Most recent CT 10/10 showed greater than 20 stones in left kidney and greater than 15 of right kidney. He presents today due to sudden onset right flank pain x 2 hours unrelieved by oxycodone. He has been admitted with an JYOTI and hyperglycemia. Will have IV fluids, IV antibiotics, n.p.o., urology consult. Patient seen at bedside with present. He stated that when he woke up this morning he felt uncomfortable, he then developed right flank pain at around 4/5 PM. He took an oxycodone at 7 PM which did not relieve his pain. He then came to the ED. He stated that he had right stents placed 10/14 which were removed 10/25. On 10/25 he had a left stent placed which was removed 11/02. He stated that the urologist, Dr. Lopez, really "dug in" when removing the left stent. Patient endorses fevers off and on for the past 7 days. As high as 101.4 F on Friday. He thought he had the flu and went to his PCP this week, COVID/flu/RSV negative. Bio fire negative on admission. Patient has had decreased oral intake but has been trying to stay well-hydrated with Powerade for the past few days. He was able to eat a fish sandwich and mac & cheese for dinner today at 5 PM. He stated he had a cortisone injection in September, likely unrelated to hyperglycemia. He has pain with urination, although flank pain currently well- controlled after receiving fentanyl in ED. Patient denies dyspnea, chest pain, nausea, vomiting, diarrhea, hematuria. He does not use nicotine products or drink alcohol. He denies past history of VTE. He does not use oxygen at baseline. He took his home medications this morning. Allergies Allergy/AdvReac Type Severity Reaction Status Date / Time semaglutide [From Ozempic] AdvReac Mild nausea and Verified 11/03/24 12:11 vomiting dulaglutide [From Trulicity] AdvReac nausea and Verified 11/03/24 12:11 vomiting Home Medications Medication Instructions Recorded Confirmed Type blood sugar diagnostic (OneTouch #100 ea 05/02/19 11/10/24 Rx Ultra Blue Test Strip) potassium citrate 15 mEq (1,620 15 meq PO BID #180 tabs 03/01/24 11/10/24 Rx mg) tablet,extended release metformin 500 mg tablet,extended 1,000 mg (2 x 500 mg) PO BID #120 03/23/24 11/10/24 Rx release 24 hr tabs allopurinol 100 mg tablet 100 mg PO HS PRN gout 09/30/24 11/10/24 History empagliflozin 25 mg tablet 25 mg PO HS 09/30/24 11/10/24 History (Jardiance) ergocalciferol (vitamin D2) 1,250 50,000 unit PO Q7D 09/30/24 11/10/24 History mcg (50,000 unit) capsule pyrithione zinc 0.25 % topical 1 applic topical DAILY PRN 09/30/24 11/10/24 History spray (DermaZinc [place]) psoriasis tamsulosin 0.4 mg capsule 0.4 mg PO HS #30 caps 10/11/24 11/10/24 Rx oxycodone-acetaminophen 7.5 mg-325 1 tab PO Q8H PRN pain #7 tabs 10/25/24 11/10/24 Rx mg tablet (Percocet) atorvastatin 40 mg tablet 40 mg PO HS #90 tabs 11/08/24 11/10/24 Rx lisinopril 5 mg tablet 5 mg PO HS #90 tabs 11/08/24 11/10/24 Rx Past Med/Surg History Problem List Hydronephrosis (Acute) Acute UTI (urinary tract infection) (Acute) Hyponatremia Elevated procalcitonin (Acute) Hyperglycemia (Acute) Acute kidney injury superimposed on chronic kidney disease (Acute) Type 2 diabetes mellitus with hyperlipidemia Eczema Right shoulder pain Stage 3b chronic kidney disease Vitamin D deficiency Encounter for pre-operative examination Medullary sponge kidney Bilateral renal stones (Acute) Pelvic pain in male Gout (Chronic) NO ISSUES AT THIS TIME, TAKING GOUT MEDS PRN Medical History Sinus bradycardia chronic and asymptomatic per chart review Eczema Elevated TSH Elevated TSH at 7.349, Free T4 WNL in January 2024 PCP monitoring per records Benign essential hypertension Hx of migraines only as a teen Medullary sponge kidney History of COVID-19 04/2022- HOME TEST, FEVER X 1, NO HOSPITALIZATION, NO CURRENT ISSUES History of kidney stones Surgical History History of neck surgery Lipoma removed 10/2021 S/P cystoscopy with ureteral stent placement multiple; most recent: 10/11/24: [place]: LMA#4 iGel good seal; no complications History of appendectomy Family History Father High cholesterol Cardiac disorder Myocardial infarction Hypertension Grandfather (Maternal) Diabetes Cardiac disorder Myocardial infarction Hypertension Grandfather (Paternal) Diabetes Cardiac disorder Myocardial infarction Hypertension Aunt Depression Breast cancer Cancer Mother Diabetes Grandmother (Maternal) Diabetes Other Colorectal cancer No family history of adverse response to anesthesia Denies family history of Ovarian cancer Prostate cancer Social History Smoking Status: Never smoker Second Hand Exposure: No; Do You Dip or Chew Tobacco: No; Hx Alcohol Use: No Hx Substance Use: No Preferred Language: Irish Communication Ability: Effective Visual Impairment: No Limitations Fish Net Maker Required: No Beliefs That Will Affect Care: None marital status: Current Living Situation: Spouse 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 Non-toxic appearing. HEENT- EOMI, mucous membranes moist. Hearing grossly intact. Heart-normal S1 and S2. No murmurs, rubs or gallops. Lungs-clear bilaterally, no respiratory distress, no accessory muscle use. Abdomen-normal bowel sounds and soft. No ascites noted. Non-tender. Extremities- no clubbing, cyanosis, or edema. Rheumatologic-normal range of motion. Psychiatric-normal affect. Results & Data Results & Data Vital Signs (Past 12 Hours) Vital Signs Temp Pulse Pulse Resp BP BP Pulse Ox 11/10/24 22:29 11/10/24 22:29 82 15 154/91 H 96 11/10/24 21:50 78 23 91 11/10/24 21:02 80 11/10/24 20:31 36.5 C 88 20 156/98 H 99 O2 Del Method 11/10/24 22:29 Room Air 11/10/24 22:29 Room Air 11/10/24 21:50 Room Air 11/10/24 21:02 11/10/24 20:31 Room Air Laboratory Results Reviewed CBC, CMP, Pro-Zack, UA Diagnostic Findings Unable to review CXR and a PCT due to synapse being down Medications Administered ED: 2L NSS, fentanyl 50 mcg, rocephin 2g ECG Additional Comments: ordered Code Status & VTE Plan VTE Prophylaxis Plan VTE Prophylaxis will be ordered: Yes Supervising Physician Co-Signing Physician Notes Attending addendum: I have physically seen this patient, have supervised the CRISTIAN's activities, and agree with the H&P unless as otherwise noted. Assessment and Plan: The patient is a 59-year-old male with a past medical history including stage IIIb CKD, history of medullary sponge kidneys, recurrent nephrolithiasis, diabetes mellitus type 2, hyperlipidemia, eczema, gout, vitamin D deficiency. Who presents to the emergency department with complaint of sudden onset of right flank pain x 2 hours, unrelieved by oxycodone. Initial workup in the emergency department included elevated creatinine above baseline, and glucose of 393. Bilateral renal stones/urinary tract infection/medullary sponge kidney- Status post right ureteral stent 10/14-10/25, left stent 10/25-11/02 CT scan abdomen pelvis without obstruction, but does show mild hydronephrosis of right kidney and consideration for ascending urinary tract infection. There are multiple nonobstructive calculi bilateral kidneys Follow urine culture and sensitivity Empiric ceftriaxone 2 g IV daily N.p.o. Placed on tamsulosin 0.4 mg p.o. daily Consult urology Acute kidney injury superimposed on CKD- Creatinine 2.80, with base 1.78-2.08 IV fluid rehydration as noted with 2 L normal saline bolus in the ED Continue NSS as noted Hold lisinopril Recheck laboratories in the a.m. Hyperglycemia in diabetes mellitus- Glucose 393, improved to 90 4:01 units of Humalog Patient Accu-Cheks with NovoLog SSI and IV fluid rehydration as noted Chronic medical issues:- Hyperlipidemia-continue atorvastatin Gout-check uric acid level and allopurinol as needed PG Care Time/CCT Total # of Minutes Spent Total Time Spent with Patient: Total time spent is greater than 50% in coordination of care (as documented) at patient's floor/unit and/or counseling patient: Coding Level of Care Code 04131 INT INP/OBS CARE 3/75MIN Diagnoses Bilateral renal stones N20.0 Acute UTI (urinary tract infection) N39.0 Acute kidney injury superimposed on chronic kidney disease N17.9; N18.9 Medullary sponge kidney Q61.5 Hyperglycemia R73.9 Hyponatremia E87.1
--- NOTE | 2024-11-11 00:02 | CT Scan Report ---
Exam(s): CT ABDOMEN + PELVIS With Contrast IV Amt: 70 ml optiray 320 EXAM: CT Abdomen and Pelvis With Intravenous Contrast CLINICAL HISTORY: Reason for exam: R flank pain; hx of nephrolithiasis. TECHNIQUE: Axial computed tomography images of the abdomen and pelvis with intravenous contrast. CTDI is 14.67 mGy and DLP is 730.72 mGy-cm. Automated exposure control was utilized for the study. A dose lowering technique was utilized adhering to the principles of ALARA. CONTRAST: Patient received 70 ml optiray 320 of IV contrast COMPARISON: October 10, 2023 FINDINGS: Lung bases: Unremarkable. No mass. No consolidation. ABDOMEN: Liver: Unremarkable. No mass. Gallbladder and bile ducts: Unremarkable. No calcified stones. No ductal dilation. Pancreas: Unremarkable. No mass. No ductal dilation. Spleen: Unremarkable. No splenomegaly. Adrenals: Unremarkable. No mass. Kidneys and ureters: Mild right hydronephrosis as well as edema surrounding the right renal pelvis and right ureter. No ureterolithiasis is seen. Consider ascending urinary tract infection. No overt signs of pyelonephritis at this time. There are multiple nonobstructive calyceal calculi in both kidneys with at least 8 calculi on the right and 9 calculi in the left measuring up to 6 mm. No ureterolithiasis is seen. Stomach and bowel: Unremarkable. No obstruction. No mucosal thickening. PELVIS: Appendix: The appendix has been removed. Bowel loops are nondilated. No acute inflammatory changes are seen involving the bowel. Bladder: Unremarkable. No mass. Reproductive: Unremarkable as visualized. ABDOMEN and PELVIS: Intraperitoneal space: Unremarkable. No free air. No significant fluid collection. Retroperitoneal space: Slight perirenal edema on the left as well. Bones/joints: Mild degenerative changes in the spine. No acute fracture or subluxation is seen. Soft tissues: See above. Vasculature: Unremarkable. No abdominal aortic aneurysm. Lymph nodes: Unremarkable. No enlarged lymph nodes. IMPRESSION: 1. Mild right hydronephrosis as well as edema surrounding the right renal pelvis and right ureter. No ureterolithiasis is seen. Consider ascending urinary tract infection. No overt signs of pyelonephritis at this time. 2. There are multiple nonobstructive calyceal calculi in both kidneys with at least 8 calculi on the right and 9 calculi in the left measuring up to 6 mm. No ureterolithiasis is seen. 3. Slight perirenal edema on the left as well. 4. The appendix has been removed. Bowel loops are nondilated. No acute inflammatory changes are seen involving the bowel. Electronically signed by: Flaquito Coulter MD 11/11/24 00:01 AM
[2024-11-11 00:34] LABS: Prothrombin Time 10.9 Seconds (9.0-12.0)
[2024-11-11] MEDS: INSULIN ASPART PER UNIT CHARGE SC STA (00:54)
[2024-11-11 01:28] LABS: Creatinine Urine Random 38.2 mg/dl
[2024-11-11] MEDS ORDERED: GLUCOSE 40% GEL 15 GM TUBE PO PRN (02:24)
[2024-11-11] MEDS ORDERED: GLUCAGON FOR INJ 1 MG VIAL SQ PRN (02:24)
[2024-11-11] MEDS ORDERED: MoRPHine SULFATE 4 MG/ML 1 ML CARP\\VIAL IV PRN (02:24)
[2024-11-11] MEDS ORDERED: MoRPHine SULFATE 2 MG/ML CARP IV PRN (02:24)
[2024-11-11] MEDS ORDERED: CARBOHYDRATES FOR HYPOGLYCEMIA PO PRN (02:24)
[2024-11-11] MEDS ORDERED: ONDANSETRON INJ 2 MG/ML 2 ML VIAL IV PRN (02:24)
[2024-11-11] MEDS ORDERED: DEXTROSE 50% 50 ML SYRINGE IV PRN (02:24)
[2024-11-11] MEDS ORDERED: ACETAMINOPHEN 1,000 MG/100 ML VIAL IV PRN (02:24)
[2024-11-11] MEDS ORDERED: GLUCOSE 10 TAB/TUBE PO PRN (02:24)
[2024-11-11] MEDS: SODIUM CHLORIDE 0.9% 1,000 ML IV SCH (02:40)
[2024-11-11] MEDS: INSULIN ASPART PER UNIT CHARGE SC SCH ×2 (05:36→13:05)
[2024-11-11] MEDS ORDERED: INSULIN ASPART PER UNIT CHARGE SC SCH (06:00)
[2024-11-11 06:37] LABS: Basophils # (auto) 0.02 K/uL (0.00-0.20); Basophils % (auto) 0.3 %; Eosinophils # (auto) 0.29 K/uL (0.00-0.50); Hematocrit (blood only) 33.7 % (42.0-52.0); Hemoglobin 11.2 g/dl (14.0-18.0); Immature Granulocytes # (auto) 0.11 K/uL (0.01-0.20); Immature Granulocytes % (auto) 1.5 %; Lymphocytes # (auto) 0.81 K/uL (1.20-3.40); Lymphocytes % (auto) 11.1 %; Mean Corpuscular Hemoglobin 31.7 pg (25.0-34.0); Mean Corpuscular Hgb Conc 33.2 g/dL (32.0-36.0); Mean Corpuscular Volume 95.5 fL (80.0-100.0); Mean Platelet Volume 10.3 fL (9.4-12.4); Monocytes # (auto) 0.63 K/uL (0.11-0.59); Monocytes % (auto) 8.6 %; Neutrophils # (auto) 5.47 K/uL (1.40-6.50); Neutrophils % (auto) 74.5 %; Platelet Count 297 K/uL (130-400); RDW Coefficient of Variation 13.1 % (11.5-14.5); RDW Standard Deviation 45.9 fL (36.4-46.3); Red Blood Count 3.53 M/uL (4.70-6.10); White Blood Count 7.33 K/ul (4.8-10.8)
--- NOTE | 2024-11-11 06:42 | Electrocardiogram Report ---
Test Reason : Blood Pressure : */* mmHG Vent. Rate : 76 BPM Atrial Rate : 76 BPM P-R Int : 176 ms QRS Dur : 84 ms QT Int : 372 ms P-R-T Axes : 76 76 60 degrees QTcB Int : 418 ms Normal sinus rhythm Normal ECG When compared with ECG of 01-Oct-2024 11:50, T wave amplitude has decreased in Inferior leads T wave amplitude has decreased in Lateral leads Confirmed by José Miguel Santos ([id number]) on 11/11/2024 6:42:38 AM Referred By: REFERRED SELF Confirmed By: José Miguel Santos
[2024-11-11 07:00] LABS: BUN Creatinine Ratio 13.9 (10-20); Calcium 8.8 mg/dl (8.6-10.3); Creatinine Clr Calc Pharmacy 28.4 ml/min; Magnesium 2.1 mg/dl (1.7-2.4); Potassium 4.8 mmol/L (3.5-5.1)
[2024-11-11 07:13] LABS: Estimated Average Glucose 249 mg/dl; Hemoglobin A1C 10.3 % (4.5-5.6)
[2024-11-11] MEDS: LANTUS PER UNIT CHARGE SQ SCH (08:08)
[2024-11-11] MEDS: POTASSIUM CITRATE 10 MEQ TAB PO SCH (08:32)
[2024-11-11] MEDS ORDERED: Nursing to Pharmacy Communication SCH (09:15)
[2024-11-11 11:17] LABS: Albumin Level 3.1 gm/dl (3.4-5.0); Bilirubin Direct 0.1 mg/dl (0-0.2); Bilirubin,Total 0.3 mg/dl (0.2-1.0); Total Protein 6.6 gm/dl (6.0-8.3)
--- NOTE | 2024-11-11 12:55 | Urology Consultation ---
<Statement entered by Sandro Jacobson MD - 11/11/24 13:07> I have discussed Mr. Busch's case with TRACI Astorga and agree with the above documentation. I do not appreciate any obstructing stones bilaterally. There does appear to be some inflammation in the ureters, possibly representing ascending infection, however should have adequate drainage at this point. We will hold off surgical intervention for now. Continue antibiotics and narrow coverage as culture data becomes available. -Sandro Jacobson MD. Date of Consultation November 11, 2024 Assessment & Plan (1) Medullary sponge kidney: (2) Acute kidney injury superimposed on chronic kidney disease: (3) Bilateral renal stones: (4) Hydronephrosis: (5) Acute UTI (urinary tract infection): 59-year-old male with history of medullary sponge kidney and nephrolithiasis admitted for right flank pain, mild hydronephrosis and concern for UTI. Patient s/p bilateral retrograde pyelogram with left URS and laser lithotripsy, removal of right ureteral stent and insertion of left ureteral stent. Left ureteral stent removed in clinic on 11/02/24. He is afebrile with stable vitals Labs reviewedcreatinine 2.44, WBC 7.33, hemoglobin 11.2 Urinalysis on arrival was not suggestive of infection Urine culture with pinpoint growth reincubating Blood cultures are pending CT imaging reviewed and discussedmild right hydronephrosis as well as edema surrounding the right renal pelvis and right ureter, no ureterolithiasis seen; bilateral nonobstructing calculi Findings may be due to infection vs inflammation Continue with broad-spectrum antibiotics, follow cultures and narrow per sensitivity data when available No acute intervention required at this time Continue supportive care, antibiotics, and medical management per medicine service Gu will sign off, please contact our service with any additional questions or concerns History of Present Illness Reason for Consultation: JYOTI, nephrolithiasis, history of medullary sponge kidney. Attending Physician: Rebecca Young MD History of Present Illness This is a 59-year-old male with past medical history of type 2 diabetes, CKD, history of medullary sponge kidney, recurrent nephrolithiasis who presented to the emergency department on 11/10/2024 for evaluation of right flank pain unrelieved with oxycodone he had at home. Patient is recently status post bilateral retrograde pyelogram with left ureteronephroscopy and laser lithotripsy, removal of right ureteral stent and insertion of left ureteral stent on 10/25/[address] Lopez. He had his left ureteral stent removed in clinic on 11/02/24. On arrival to ED, he was afebrile, hypertensive. Lab work showed sodium 132, creatinine 2.8, glucose 393, WBC 9.13, hemoglobin 12.6. Lactate 1.1. Urinalysis showed 1+ blood, trace LE, 11-20 WBC, 0-2 epithelial cells, negative bacteria. ED course: IV fluids, ceftriaxone, fentanyl. Workup in the emergency department included CT abdomen pelvis with contrast which showed mild right hydronephrosis as well as edema surrounding the right renal pelvis and right ureter, no ureterolithiasis seen. Multiple nonobstructing renal calculi bilaterally. He was admitted to the hospital medicine service for JYOTI on CKD, concern for infection. Urology is consulted for JYOTI, nephrolithiasis, history of medullary sponge kidney. Patient seen and examined at bedside this morning. He is awake and resting in bed. He reports right flank pain started yesterday and worsened prompting hospital evaluation. He feels much better since arrival. Denies flank pain at present. No fever or chills. He is voiding spontaneously. No dysuria or hematuria. Allergies Allergy/AdvReac Type Severity Reaction Status Date / Time semaglutide [From Ozempic] AdvReac Mild nausea and Verified 11/03/24 12:11 vomiting dulaglutide [From Trulicity] AdvReac nausea and Verified 11/03/24 12:11 vomiting Home Medications Medication Instructions Recorded Confirmed Type blood sugar diagnostic (OneTouch #100 ea 05/02/19 11/10/24 Rx Ultra Blue Test Strip) potassium citrate 15 mEq (1,620 15 meq PO BID #180 tabs 03/01/24 11/10/24 Rx mg) tablet,extended release metformin 500 mg tablet,extended 1,000 mg (2 x 500 mg) PO BID #120 03/23/24 11/10/24 Rx release 24 hr tabs allopurinol 100 mg tablet 100 mg PO HS PRN gout 09/30/24 11/10/24 History empagliflozin 25 mg tablet 25 mg PO HS 09/30/24 11/10/24 History (Jardiance) ergocalciferol (vitamin D2) 1,250 50,000 unit PO Q7D 09/30/24 11/10/24 History mcg (50,000 unit) capsule pyrithione zinc 0.25 % topical 1 applic topical DAILY PRN 09/30/24 11/10/24 History spray (DermaZinc [place]) psoriasis tamsulosin 0.4 mg capsule 0.4 mg PO HS #30 caps 10/11/24 11/10/24 Rx oxycodone-acetaminophen 7.5 mg-325 1 tab PO Q8H PRN pain #7 tabs 10/25/24 11/10/24 Rx mg tablet (Percocet) atorvastatin 40 mg tablet 40 mg PO HS #90 tabs 11/08/24 11/10/24 Rx lisinopril 5 mg tablet 5 mg PO HS #90 tabs 11/08/24 11/10/24 Rx Patient History Medical History Sinus bradycardia chronic and asymptomatic per chart review Eczema Elevated TSH Elevated TSH at 7.349, Free T4 WNL in January 2024 PCP monitoring per records Benign essential hypertension Hx of migraines only as a teen Medullary sponge kidney History of COVID-19 04/2022- HOME TEST, FEVER X 1, NO HOSPITALIZATION, NO CURRENT ISSUES History of kidney stones Surgical History History of neck surgery Lipoma removed 10/2021 S/P cystoscopy with ureteral stent placement multiple; most recent: 10/11/24: [place]: LMA#4 iGel good seal; no complications History of appendectomy Family History Father High cholesterol Cardiac disorder Myocardial infarction Hypertension Grandfather (Maternal) Diabetes Cardiac disorder Myocardial infarction Hypertension Grandfather (Paternal) Diabetes Cardiac disorder Myocardial infarction Hypertension Aunt Depression Breast cancer Cancer Mother Diabetes Grandmother (Maternal) Diabetes Other Colorectal cancer No family history of adverse response to anesthesia Denies family history of Ovarian cancer Prostate cancer Social History Smoking Status: Never smoker Second Hand Exposure: No; Do You Dip or Chew Tobacco: No; Hx Alcohol Use: No Hx Substance Use: No Preferred Language: French Communication Ability: Effective Visual Impairment: No Limitations Knitter Mechanic Required: No Beliefs That Will Affect Care: None marital status: Current Living Situation: Spouse 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 How many Children do You have: 2 Feels Safe at Home: Yes Childhood Exposure to Second-Hand Smoke: Yes Diet: regular caffeine: Yes Dental Care, Regularly: No Physical Activity Frequency: Daily Seatbelt Use: sometimes Sunscreen Use: Yes Assistive Devices: Glasses Review of Systems Review of Systems: All systems reviewed & are unremarkable except as noted in HPI & below Physical Exam Constitutional: well developed and well nourished; no acute distress Respiratory: normal respiratory effort; no respiratory distress and no labored breathing Gastrointestinal (Abdomen): Inspection/Auscultation: abdomen normal to inspection Musculoskeletal: Head/Neck/Chest: normocephalic Neurologic: moves all extremities and awake Psychiatric: Orientation: alert and oriented x 3 Results & Data Vital Signs (Past 12 Hours) Vital Signs Temp Pulse Pulse Pulse Resp BP BP 11/11/24 11:44 37.1 C 63 18 113/73 11/11/24 07:37 37 C 68 16 121/71 11/11/24 02:30 37.0 C 69 18 119/77 11/11/24 01:47 36.8 C 63 18 111/70 11/11/24 01:00 69 20 120/82 Pulse Ox O2 Del Method 11/11/24 11:44 95 Room Air 11/11/24 07:37 95 Room Air 11/11/24 02:30 96 Room Air 11/11/24 01:47 94 Room Air 11/11/24 01:00 93 Room Air PG Care Time/CCT Total # of Minutes Spent Total Time Spent with Patient: Total time spent is greater than 50% in coordination of care (as documented) at patient's floor/unit and/or counseling patient: Coding Level of Care Code 20431 IN/OBS CONSULT LVL 4,60M Diagnoses Medullary sponge kidney Q61.5 Acute kidney injury superimposed on chronic kidney disease N17.9; N18.9 Bilateral renal stones N20.0 Hydronephrosis N13.30 Acute UTI (urinary tract infection) N39.0
[2024-11-11] MEDS: ACETAMINOPHEN 500 MG TAB PO PRN (13:29)
--- NOTE | 2024-11-11 14:39 | History & Physical Bridge Note ---
Date of Service November 11, 2024 History & Physical Bridge Note I have examined the patient, reviewed the History & Physical and in the interval since the performance of the History & Physical I have noted the following changes of clinical significance: Reviewed chart and discussed case with Urology. No need for urological intervention, no obstructing stone. Winston may be from infection. UA likely no bacteria due to recent antibiotic use but urine cx now with pinpoint growth, UA with pyuria. No fevers here. Having a headache and not much better with tylenol, doesn't want anything stronger. No further right flank pain today. Is urinating Discussed his care also with DM educator and given elevated HgbA1C compared to previous (now 10.3% up from 7.5& last year), willing to start once daily Lantus. Vitals reviewed-afebrile RRR no mgr CTAB no wcr ABd +BS soft NT ND no CVA tenderness Ext no edema JYOTI improving, candle wicker down to 2.4, making urine Ur cx with pinpoint growth A/P: 59 yo male with a h/o medullary sponge kidney, numerous kidney stones, here with right flank pain, low grade fever x 1 week, likely pyelonephritis, UTI, and JYOTI. Mildly elevated ALT and alk phos-may be irritation of liver from acute pyelo? Liver nad GB normal on CT abd/pel. Received IVFs and can now stop, adv diet to DM diet, JYOTI improving ALT and alk phos improved on repeat labs Follow urine cx, blood cxs Folow CBC, CMP continue ceftriaxone Plan to start Lantus at home after discharge
[2024-11-11 15:28] VITALS: O2SAT 94
[2024-11-11] MEDS: BUTALBITAL/ACETAMIN/CAFFEINE TAB PO STA (19:02)
[2024-11-11] MEDS: cefTRIAXone SODIUM 2,000 MG/50 ML BAG IV SCH (20:57)
[2024-11-11] MEDS: TAMSULOSIN HCL 0.4 MG CAP PO SCH (20:57)
[2024-11-11] MEDS: ATORVASTATIN 40 MG TAB PO SCH (20:58)
[2024-11-11 23:12] VITALS: RESP 16
[2024-11-12 05:01] LABS: Basophils # (auto) 0.04 K/uL (0.00-0.20); Basophils % (auto) 0.5 %; Eosinophils # (auto) 0.46 K/uL (0.00-0.50); Eosinophils % (auto) 5.5 %; Hematocrit (blood only) 33.8 % (42.0-52.0); Hemoglobin 11.3 g/dl (14.0-18.0); Immature Granulocytes # (auto) 0.11 K/uL (0.01-0.20); Immature Granulocytes % (auto) 1.3 %; Lymphocytes # (auto) 0.92 K/uL (1.20-3.40); Lymphocytes % (auto) 11.1 %; Mean Corpuscular Hemoglobin 32.5 pg (25.0-34.0); Mean Corpuscular Hgb Conc 33.4 g/dL (32.0-36.0); Mean Corpuscular Volume 97.1 fL (80.0-100.0); Mean Platelet Volume 10.4 fL (9.4-12.4); Monocytes # (auto) 0.45 K/uL (0.11-0.59); Monocytes % (auto) 5.4 %; Neutrophils # (auto) 6.31 K/uL (1.40-6.50); Neutrophils % (auto) 76.2 %; Platelet Count 309 K/uL (130-400); RDW Coefficient of Variation 13.1 % (11.5-14.5); RDW Standard Deviation 46.8 fL (36.4-46.3); Red Blood Count 3.48 M/uL (4.70-6.10); White Blood Count 8.29 K/ul (4.8-10.8)
[2024-11-12 05:12] LABS: Albumin Level 3.2 gm/dl (3.4-5.0); BUN Creatinine Ratio 12.9 (10-20); Bilirubin Direct 0.1 mg/dl (0-0.2); Bilirubin,Total 0.3 mg/dl (0.2-1.0); Calcium 9.1 mg/dl (8.6-10.3); Creatinine Clr Calc Pharmacy 27.8 ml/min; Potassium 4.7 mmol/L (3.5-5.1); Total Protein 6.7 gm/dl (6.0-8.3)
[2024-11-12 07:53] VITALS: BP 119/79; TEMP 97.9
--- NOTE | 2024-11-12 15:21 | Discharge Summary ---
Discharge Summary Date of Service November 12, 2024 Principal Dx & Hospital Course #1 = Principal Diagnosis (1) Bilateral renal stones: (2) Acute UTI (urinary tract infection): (3) Acute kidney injury superimposed on chronic kidney disease: (4) Medullary sponge kidney: (5) Hyperglycemia: (6) Hyponatremia: Plan Patient is a 59-year-old male with past medical history of stage IIIb CKD, history of medullary sponge kidneys, recurrent nephrolithiasis, type II DM, hyperlipidemia. He recently had stent placement 10/25 which were removed 11/02. Most recent CT 10/10 showed greater than 20 stones in left kidney and greater than 15 of right kidney. He p/w acute sudden onset right flank pain x 2 hours unrelieved by oxycodone. He was admitted with an JYOTI and hyperglycemia as well as UTI and acute pyelonephritis #BL renal stones/UTI/acute pyelonephritis/medullary sponge kidney-patient presented with right flank pain and fevers lower low-grade x 7 days after stent removed. He was treated with azithromycin for suspected upper respiratory infection with his PCP earlier this week. With ongoing nephrolithiasis, s/p right stent 10/14 -10/25, left stent 10/25-11/02 removed CTAP with mild hydronephrosis right kidney, no ureterolithiasis, consider ascending urinary tract infection, multiple nonobstructive calculi bilateral kidneys UA with leukocyte esterase but no bacteria however he recently took 2 days of Cipro with stent removal last week and azithromycin for URI. Urine culture grew Staphylococcus epidermidis, pansensitive Pro-Zack elevated to 1.52 and given recent instrumentation, suspect this is a true UTI/pyelonephritis Blood cultures remained no growth to date at the time of discharge, he felt much improved, no pain, no fevers Seen by urology-no intervention needed Received ceftriaxone and will discharge to home on renally dosed Augmentin to finish out a 10-day course Follow-up with final blood cultures after discharge #JYOTI -history of stage IIIb CKD, suspect secondary acute pyelonephritis but also some decreased oral intake with fevers for last 7 days. Cr increased from 2.08 to 2.80, BUN elevated to 37 (baseline)- baseline Cr last year was previously 1.7-1.8 , UA showing trace protein , FENa = 2.1% = intrinsic Was given IV fluids and creatinine improved to to 2.4 and remained stable at 2.4 on the day of discharge He is tolerating p.o. Encouraged p.o. fluids on discharge Continue to hold lisinopril after discharge and check BMP on Friday with results to go to his ec teacher # DM2 with hyperglycemia-hemoglobin A1c up significantly today 10.3% from 7.5% previously. Likely secondary to multiple recent stressors with multiple kidney stones. He is on metformin and Jardiance at home. He should no longer be on metformin due to renal function. The Jardiance is actually more for his chronic kidney disease and he should remain on that. Seen by community health educator here-patient is willing to go on Lantus -Discharged home on Lantus 8 units at bedtime and follow-up with PCP for further titration of medication -Discontinue metformin #Hyponatremia-this is action pseudohyponatremia due to hyperglycemia-not an issue #HLD - continue statin #Gout - allopurinol is not meant to be taken as needed-make schedule VTE ppx: SCDs Dispo: Doing very well, stable for discharge to home. Discussed all care with his at the bedside on the day of discharge Notes For Next Care Provider Follow-up blood sugars with starting Lantus Check BMP on Friday Medication Changes From Visit Discontinue metformin Added Lantus 8 units SQ at bedtime Added Augmentin 500/125 mg p.o. twice daily x 8 more days Admission HPI Per Admitting Provider Patient is a 59-year-old male with past medical history of stage IIIb CKD, history of medullary sponge kidneys, recurrent nephrolithiasis, type II DM, hyperlipidemia. He recently had stent placement 10/25 which were removed 11/02. Most recent CT 10/10 showed greater than 20 stones in left kidney and greater than 15 of right kidney. He presents today due to sudden onset right flank pain x 2 hours unrelieved by oxycodone. He has been admitted with an JYOTI and hyperglycemia. Will have IV fluids, IV antibiotics, n.p.o., urology consult. Patient seen at bedside with present. He stated that when he woke up this morning he felt uncomfortable, he then developed right flank pain at around 4/5 PM. He took an oxycodone at 7 PM which did not relieve his pain. He then came to the ED. He stated that he had right stents placed 10/14 which were removed 10/25. On 10/25 he had a left stent placed which was removed 11/02. He stated that the urologist, Dr. Lopez, really "dug in" when removing the left stent. Patient endorses fevers off and on for the past 7 days. As high as 101.4 F on Friday. He thought he had the flu and went to his PCP this week, COVID/flu/RSV negative. Bio fire negative on admission. Patient has had decreased oral intake but has been trying to stay well-hydrated with Powerade for the past few days. He was able to eat a fish sandwich and mac & cheese for dinner today at 5 PM. He stated he had a cortisone injection in September, likely unrelated to hyperglycemia. He has pain with urination, although flank pain currently well- controlled after receiving fentanyl in ED. Patient denies dyspnea, chest pain, nausea, vomiting, diarrhea, hematuria. He does not use nicotine products or drink alcohol. He denies past history of VTE. He does not use oxygen at baseline. He took his home medications this morning. Discharge Exam Constitutional WD/WN, vitals as above Neck trachea midline, no thyromegaly Respiratory normal respiratory effort, lungs clear to auscultation Cardiovascular RRR, no murmur, no edema Chest (Breasts) Chest: normal inspection of chest Gastrointestinal (Abdomen) normal bowel sounds, soft, nontender, no hepatosplenomegaly Musculoskeletal Extremities: extremities normal to inspection; no cyanosis and no clubbing Skin no rashes, warm and dry Neurologic moves all extremities and awake; no focal motor deficits Psychiatric A+Ox3, euthymic affect Lymphatic no lymphedema Discharge Plan Discharge Items Patient Disposition: Home - Self-Care Reason For Visit: JYOTI, NEPHROLITHASIS Discharge Diagnosis: Acute pyelonephritis, UTI Acute kidney injury Uncontrolled diabetes Condition on Discharge: Good Activity: Resume your previous activity Non-emergency contact: Primary Care Provider, Popcorn Vendor and Urologist Call non-emergency contact if: you have any medication questions, your symptoms worsen and your temperature is above 101 Follow-up/Referrals: Sharron Gillespie CRNP [Primary Care Provider] - 11/19/24 10:30 am (Follow up within 1-2 weeks ) Kylie Meade MD [Physician] - (Follow up within 1-2 weeks) Diet: Carb Consistent or DM2 Ambulatory Orders: Basic Metabolic Panel (Routine) Timeframe: 3 Days Location: Determined by Patient Ordered By: Rebecca Hampton Attending Provider Instructions: Please finish out 8 more days of the antibiotic called Augmentin, twice a day for your kidney infection. You will need to have blood drawn to check your kidney function on Friday. For your diabetes, you will be started on Lantus 8 units once a day in the evening. If your blood glucose is persistently remaining above 200, please contact your PCP for advice on adjustment of your insulin dose. Pending Studies at Discharge: Yes (Final urine and blood cultures) Stand-Alone Forms: [facility] Sm[facility] C[facility] Medications and DC Order Prescriptions: New insulin glargine 100 unit/mL (3 mL) insulin pen 8 unit subcut PM Qty: 15 0RF (DME) pen needle, diabetic [Pen Needle] 32 gauge x 5/32" needle See Rx Instructions .Route Qty: 50 0RF Rx Instructions: use once daily with Lantus pen amoxicillin-pot clavulanate 500-125 mg tablet 1 tab PO BID Qty: 16 0RF Continued atorvastatin 40 mg tablet 40 mg PO HS Qty: 90 3RF Rx Instructions: TAKE 1 TABLET ONCE DAILY ASDIRECTED potassium citrate 15 mEq tablet extended release 15 meq PO BID Qty: 180 3RF (DME) OneTouch Ultra Blue Test Strip strip See Dose Instructions .ROUTE .MEDSUPPLY Qty: 100 0RF Dose Instruction: As directed Rx Instructions: As directed DermaZinc [place] 0.25 % spray,non-aerosol 1 applic topical DAILY PRN (Reason: psoriasis) Rx Instructions: pt will pay out of pocket not covered by ins ergocalciferol (vitamin D2) 1,250 mcg (50,000 unit) capsule 50,000 unit PO Q7D Rx Instructions: TAKE 1 CAPSULE WEEKLY Jardiance 25 mg tablet 25 mg PO HS tamsulosin 0.4 mg capsule 0.4 mg PO HS Qty: 30 0RF oxycodone-acetaminophen [Percocet] 7.5-325 mg tablet 1 tab PO Q8H PRN (Reason: pain) Qty: 7 0RF Changed allopurinol 100 mg tablet 100 mg PO HS Qty: 30 0RF Held lisinopril 5 mg tablet 5 mg PO HS Qty: 90 3RF Hold Instructions: Resume on 11/19/24. Hold until Dr. Meade says it is ok to resume this. Rx Instructions: TAKE 1 TABLET DAILY DIRECTED Discontinued metformin 500 mg tablet extended release 24 hr 1,000 mg PO BID Qty: 120 6RF Rx Instructions: takes 500mg x 2 in PM Discharge Orders: Discharge Order (Routine); Ordered 11/12/24 Ordered By: Rebecca Young Admission Data Admit Date/Time: 11/11/24 00:15 Attending Provider: Rebecca Young Admit Provider: Marcelino Morris Primary Care Provider: Sharron Gillespie Other Providers: Sandro Jacobson Other Interventions: Discharge Summary Assessment (RN) Last Done: 11/12/24 15:25 Hospital Stay Data Consultations 11/11/24 00:00 ED Decision to Admit Stat 11/11/24 02:24 Consult Urology Routine Diagnostic Imagining Performed 11/10/24 21:04 CT Abd and Pelvis [CT abd pelvis IV con only] Stat Pending Results Patient Have Any Pending Studies at Discharge: Yes (Final urine and blood cultures) Discharge Instructions Given to Patient (Per Discharging Provider) Please finish out 8 more days of the antibiotic called Augmentin, twice a day for your kidney infection. You will need to have blood drawn to check your kidney function on Friday. For your diabetes, you will be started on Lantus 8 units once a day in the evening. If your blood glucose is persistently remaining above 200, please contact your PCP for advice on adjustment of your insulin dose. Total Time Total Time Spent Total Time Spent (In Minutes): 35 Total Time Includes: Examination of the Patient, Discharge Planning and Medication Reconciliation Coding Level of Care Code 03794 INP/OBS DISCH >30 MIN Diagnoses Bilateral renal stones N20.0 Acute UTI (urinary tract infection) N39.0 Acute kidney injury superimposed on chronic kidney disease N17.9; N18.9 Medullary sponge kidney Q61.5 Hyperglycemia R73.9 Hyponatremia E87.1
[2024-11-12 15:26] VITALS: PULSE 63
== END 2024-11-12 16:15 | disposition home or self-care (01) | DRG 683 ==
LOC: ED 20:29 → SUATTDRO 11-11 00:15 → 2W 11-11 00:15